=== PATIENT | female | born 1945 | race Caucasian/White ===

== ENCOUNTER 2018-11-17 14:53 | Observation (INO) ==
[2018-11-17] MEDS ORDERED: Naloxone 0.4 MG/ML INJ IVP PRN (15:35)
[2018-11-17] MEDS ORDERED: Ondansetron 4 MG/2 ML VIAL IVP PRN (15:35)
[2018-11-17] MEDS: Ipratropium/Albuterol Neb 3 ML IH SCH ×3 (15:53→23:33)
--- NOTE | 2018-11-17 15:56 | Internal Med History&Physical ---
Date of Encounter: 11/17/18 Time of Encounter: 15:30 Internal Medicine - H&P: HPI Chief complaint: SOB, sent from pulm clinic Admitted From: Direct Admit Plans for Post Hospital Care: Home History of present illness: Ms. Bhargav Machuca is a 73 year old female with history of COPD with multiple episodes of exacerbations over the last year, HTN, DM, is admitted directly from pulmonary clinic due to persistent COPD exacerbation. Patient states that she was admitted twice over the last 6 month, last one about 4 months ago at a hospital in [facility]. She has been on various doses of steroids and antibiotics during that period and was seen in pulmonary clinic today when she is found to have diffuse wheezing on exam. Associated with mild cough and sputum production. Denies fever/chills, nausea/vomiting, diaphoresis, chest pain, orthopnea, PND, or leg swelling. No recent immobilization or surgery. Denies any GI/ symptoms. I spoke to the leather goods ii assembler over the phone and determined that she will need bronchoscopy tentatively on Wednesday. Past Med Surg Social Fam HX - Past Medical History Medical history: cancer, COPD, diabetes, hypertension Psychiatric history: no psych history - Past Surgical History Additional surgical history: B/L mastectomy - Social History Smoking Status: Unknown if ever smoked Alcohol use: none Drug use: none - Additional Family History Additional family history: Reviewed and noncontributory Internal Medicine - H&P: Meds Allergy/AdvReac Type Severity Reaction Status Date / Time Cephalosporins AdvReac Hives Verified 11/17/18 15:43 Nitrofuran Analogues AdvReac Hives Verified 11/17/18 15:43 NSAIDS (Non-Steroidal AdvReac Hives Verified 11/17/18 15:43 Anti-Inflamma Penicillins AdvReac Hives Verified 11/17/18 15:40 Tetracyclines AdvReac Hives Verified 11/17/18 15:43 Tricyclic Compounds AdvReac Hives Verified 11/17/18 15:43 All Systems PM: A 10-system review of systems was performed and is negative for pertinent findings except as documented above in the HPI. - Constitutional Vitals: Temp Pulse Resp BP Pulse Ox 98.1 F 80 20 111/61 95 11/17/18 15:07 11/17/18 15:07 11/17/18 15:07 11/17/18 15:07 11/17/18 15:07 Exam: General: Alert and oriented, not in acute distress. HEENT:EOMI, pupils equal, round and reactive. Cardiovascular:Normal S1 & S2, No JVD. Pulse regular. Lungs: Diffuse bilateral wheezes Abdomen:Soft, non-tender, no rigidity. Extremities:No deformity or swelling Neurological:Normal cognition and motor skills. Non-focal Skin:Normal color, no rash, no lesions. Pulses:Carotid and radial pulses normal +2. Rest of the physical exam is non contributory - Assessment and Plan (1) COPD exacerbation Current Visit: Yes Status: Acute Assessment and plan: recurrent COPD exacerbation requiring multiple hospitalizations, last one ~ 4 months ago at the hospital in [facility] Was seen by leather goods ii assembler in the clinic today and was advised for the admission. Discussed in person with Dr. Henderson, was given IV solumedrol 125mg in the clinic continue solumedrol 40mg BID, scheduled bronchodilators CT chest Respiratory viral panel, sputum culture if able to expectorate start levaquin after bld cultures are drawn tentative plan for bronchoscopy on Wednesday pulmonary consult (2) Diabetes Current Visit: Yes Status: Chronic Assessment and plan: moderate dose sliding scale ADA diet Qualifiers: Diabetes mellitus type: type 2 Diabetes mellitus it analyst insulin use: with skilled nursing use Diabetes mellitus complication status: with unspecified complications Qualified Code(s): E11.8 - Type 2 diabetes mellitus with unspecified complications; Z79.4 - longterm (current) use of insulin (3) HTN (hypertension) Current Visit: No Status: Chronic Assessment and plan: Resume home meds once reconciled Qualifiers: Hypertension type: essential hypertension Qualified Code(s): I10 - Essential (primary) hypertension (4) Obesity (BMI 30-39.9) Current Visit: Yes Status: Chronic Assessment and plan: Importance of weight loss emphasized (5) DVT prophylaxis Current Visit: Yes Status: Acute Assessment and plan: SQ heparin - Time Spent With Patient Total time spent is greater than 50% in coordination of care (as documented) at patient's floor/unit and/or counseling patient: 25 - 35 minutes
[2018-11-17] MEDS ORDERED: Dextrose 4 GM Chewable Tablets PO PRN ×2 (16:02)
[2018-11-17] MEDS ORDERED: D5% in Water 1,000 ML IVC PRN (16:02)
[2018-11-17] MEDS ORDERED: Dextrose Gel 15 GM/37.5 ML TUBE PO PRN ×2 (16:02)
[2018-11-17] MEDS ORDERED: *HR* Dextrose 50 % in Water (Syg) 50 ML SYRINGE IVP PRN (16:02)
[2018-11-17 16:19] LABS: Basophils % 0.6 %; Eosinophils # 0.4 K/mcL (0.0-0.6); Eosinophils % 5.3 %; Hematocrit 34.4 % (35.3-44.9); Hemoglobin 10.5 g/dL (11.5-15.4); Immature Granulocytes % 0.1 % (0-4); Lymphocytes # 2.2 K/mcL (0.6-4.6); Lymphocytes % 30.3 %; Mean Corpuscular HGB Conc 30.5 g/dL (31.6-35.5); Mean Corpuscular Volume 88.4 fL (83.0-100.0); Mean Platelet Volume 10.7 fL (9.4-12.4); Monocytes # 0.4 K/mcL (0.0-1.3); Neutrophils # 4.2 K/mcL (1.6-8.9); Platelet Count 200 K/mcL (140-400); Red Blood Count 3.89 M/mcL (3.82-4.97); Red Cell Distribution Width 15.2 % (11.5-14.5); Segmented Neutrophils % 58.7 %
[2018-11-17 16:35] LABS: Calcium 8.8 mg/dL (8.6-10.3); Potassium 4.1 mEq/L (3.5-5.1)
[2018-11-17] MEDS: Insulin LISPRO 300 UNITS/3 ML VIAL SQ SCH ×2 (16:37→21:11)
--- NOTE | 2018-11-17 17:04 | Pulmonology Consult Note ---
<Jolene Abrams - Last Filed: 11/17/18 16:59> Date of Encounter: 11/17/18 Time of Encounter: 16:00 Assessment and Plan (1) COPD exacerbation Current Visit: Yes Status: Acute History of COPD currently in COPD exacerbation having worsening cough as well as shortness of breath. Has frequent COPD exacerbations and is compliant with her Symbicort and albuterol. As long history of occupational chemical exposure as well as a pet bird. There is no echo on file and may benefit from further cardiac workup Continue DuoNeb Continue Symbicort 40 mg of IV Solu-Medrol Q8HR Recommend bronchoscopy over the weekend due to her acute COPD exacerbation. (2) Diabetes Current Visit: Yes Status: Chronic History of type 2 diabetes. May need to have her sliding-scale adjusted due to Solu-Medrol. Further recommendations by primary team. 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 Does have history of diabetes recommend diabetic diet. History of Present Illness Consult date: 11/17/18 Requesting physician: Min Grover Reason for consult: dyspnea, cough Chief complaint: cough History of present illness: Ms. Durant is a 73-year-old female with past medical history of COPD, hyperte nsion, type 2 diabetes who presented to her pulmonary clinic complaining of cough and shortness of breath. He was directly admitted from the pulmonary clinic due to persistent COPD exacerbation. She has had frequent hospital admissions in the past 6 months due to her COPD exacerbation. He noted that often after completing her steroid taper her symptoms worsen. She is not a current smoker and quit smoking 16 years ago has 80-guhi-naem smoking history. She does have a pet bird and has had this port for the past 18 years. She does report that the bird is not in the same room as her but does have exposure to it. 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 She denies history of sleep apnea and noted that she has been tested for a sleep study in the past. Currently she is complaining of cough that is nonproductive and just. She denies fever, chills, chest pain or abdominal pain. Past Med Surg Social Fam HX - Past Medical History Medical history: cancer, COPD, diabetes, hypertension Psychiatric history: no psych history - Past Surgical History Additional surgical history: B/L mastectomy - Social History Smoking Status: Unknown if ever smoked Alcohol use: none Drug use: none Medications and Allergies Allergy/AdvReac Type Severity Reaction Status Date / Time Cephalosporins AdvReac Hives Verified 11/17/18 15:43 Nitrofuran Analogues AdvReac Hives Verified 11/17/18 15:43 NSAIDS (Non-Steroidal AdvReac Hives Verified 11/17/18 15:43 Anti-Inflamma Penicillins AdvReac Hives Verified 11/17/18 15:40 Tetracyclines AdvReac Hives Verified 11/17/18 15:43 Tricyclic Compounds AdvReac Hives Verified 11/17/18 15:43 All Systems: The remainder of the systems were reviewed and are negative - Constitutional Constitutional: no chills, no fever(s), no weakness - EENT Nose, mouth and throat: no nasal congestion, no sinus pain, no sore throat - Cardiovascular Cardiovascular: dyspnea, dyspnea on exertion, no chest pain, no chest pain at rest, no chest pain with activity, no edema, no orthopnea, no palpitations, no paroxysmal nocturnal dyspnea - Respiratory Respiratory: cough, dyspnea, dyspnea on exertion, chest congestion - Gastrointestinal Gastrointestinal: no abdominal pain, no hematemesis, no hematochezia - Musculoskeletal Musculoskeletal: no weakness, no numbness - Integumentary Integumentary: no erythema, no rash - Psychiatric Psychiatric: no anxiety, no depression Physical Examination Vital Signs: Vital Signs, Last 4 Hours Temp Pulse Resp BP Pulse Ox 11/17/18 15:53 20 95 11/17/18 15:07 98.1 F 80 20 111/61 95 11/17/18 14:45 98 F 83 16 126/81 95 General appearance: no acute distress, alert Eyes: nonicteric ENT: oropharynx moist Neck: supple Auscultation: bilateral: wheezes (Wheezing in all lung lobes) Gastrointestinal: normoactive bowel sounds, soft, non-tender, non-distended Integumentary: normal Extremities: no cyanosis, no edema Musculoskeletal: no deformities normal mental status, pupils equal and round mood appropriate, affect normal Results - Laboratory Findings CBC and BMP: 11/17/18 16:04 11/17/18 16:04 Abnormal lab findings: Abnormal lab results Hgb 10.5 g/dL (11.5-15.4) L 11/17/18 16:04 Hct 34.4 % (35.3-44.9) L 11/17/18 16:04 MCH 27.0 pg (28.0-33.3) L 11/17/18 16:04 MCHC 30.5 g/dL (31.6-35.5) L 11/17/18 16:04 RDW 15.2 % (11.5-14.5) H 11/17/18 16:04 BUN 42 mg/dL (8-23) H 11/17/18 16:04 Creatinine 1.78 mg/dL (0.60-1.20) H 11/17/18 16:04 Est GFR ( Amer) 34 (> 60) L 11/17/18 16:04 Est GFR (Non-Af Amer) 28 (> 60) L 11/17/18 16:04 Glucose 112 mg/dL (70-105) H 11/17/18 16:04 - Clinical Findings Intake & Output: Intake & Output 11/17/18 11/17/18 11/17/18 07:59 15:59 23:59 Weight 94.529 kg Consult Discharge Plan - Plan Referrals: NONE,PCP [Primary Care Provider] - <Miguel Kahn - Last Filed: 11/17/18 17:19> Date of Encounter: 11/17/18 All Systems: The remainder of the systems were reviewed and are negative Physical Examination Vital Signs: Vital Signs, Last 4 Hours Temp Pulse Resp BP Pulse Ox 11/17/18 15:53 20 95 11/17/18 15:07 98.1 F 80 20 111/61 95 11/17/18 14:45 98 F 83 16 126/81 95 Results - Laboratory Findings CBC and BMP: 11/17/18 16:04 11/17/18 16:04 Abnormal lab findings: Abnormal lab results Hgb 10.5 g/dL (11.5-15.4) L 11/17/18 16:04 Hct 34.4 % (35.3-44.9) L 11/17/18 16:04 MCH 27.0 pg (28.0-33.3) L 11/17/18 16:04 MCHC 30.5 g/dL (31.6-35.5) L 11/17/18 16:04 RDW 15.2 % (11.5-14.5) H 11/17/18 16:04 BUN 42 mg/dL (8-23) H 11/17/18 16:04 Creatinine 1.78 mg/dL (0.60-1.20) H 11/17/18 16:04 Est GFR ( Amer) 34 (> 60) L 11/17/18 16:04 Est GFR (Non-Af Amer) 28 (> 60) L 11/17/18 16:04 Glucose 112 mg/dL (70-105) H 11/17/18 16:04 POC Glucose 126 mg/dL (70-99) H 11/17/18 15:17 - Clinical Findings Intake & Output: Intake & Output 11/17/18 11/17/18 11/17/18 07:59 15:59 23:59 Weight 94.529 kg - Attending Attestation I examined this patient and my medical decision-making was reviewed with the Resident Physician. I agree with the documented findings, disposition and treatment plan as described except to the extent set forth below. Patient seen and examined. Labs, radiology, chart personally reviewed. Agree with resident's history and physical, assessment, plan with following comments: HIGH SCHOOL ASSISTANT PRINCIPAL: Patient follows commands, Pulmonary: Acceptable oxygenation and ventilation Patient was referred from the outpatient clinic because of her multiple exacerbations and she will need a bronchoscopy, however cause of her exacerbation at this time will need to treat her with systemic steroid and bronchodilators and monitor her blood glucose because of the history of diabetes and cover her with empiric antibiotics as well. Patient most likely will have bronchoscopy this coming weekend if her condition does not change. Airway ins pection and checking for any atypical infections and would be reasonable. Thank you very much for consultation and please call for any questions.
[2018-11-17] MEDS: *HR* Heparin 5,000 UNIT/ML VIAL SQ SCH (18:30)
[2018-11-17] MEDS: MethylPREDNISolone 40 MG/ML VIAL IVP SCH (18:31)
[2018-11-17 18:39] LABS: Adenovirus Not Detected (Not Detect); Bordetella Pertussis Not Detected (Not Detect); Chlamydophila pneumoniae Not Detected (Not Detect); Coronavirus 229E Not Detected (Not Detect); Coronavirus HKU1 Not Detected (Not Detect); Coronavirus NL63 Not Detected (Not Detect); Coronavirus OC43 Not Detected (Not Detect); Human Metapneumovirus Not Detected (Not Detect); Human Rhinovirus/Enterovirus Not Detected (Not Detect); Influenza A Subtype 2009 H1 Not Detected (Not Detect); Influenza A Untypeable Not Detected (Not Detect); Influenza B Not Detected (Not Detect); Mycoplasma pneumoniae Not Detected (Not Detect); Parainfluenza Virus 1 Not Detected (Not Detect); Parainfluenza Virus 2 Not Detected (Not Detect); Parainfluenza Virus 3 Not Detected (Not Detect); Parainfluenza Virus 4 Not Detected (Not Detect); Respiratory Syncytial Virus Not Detected (Not Detect)
[2018-11-17] MEDS: Budesonide/Formoterol 160/4.5 1 PUFF INH IH SCH (20:03)
[2018-11-17] MEDS: traMADol 50 MG TABLET PO PRN (23:07)
[2018-11-17] MEDS: Levofloxacin 750 MG/150 ML 750 MG/150 ML BAG IVPB SCH (23:07)
[2018-11-18] MEDS: MethylPREDNISolone 40 MG/ML VIAL IVP SCH ×4 (00:36→23:19)
[2018-11-18] MEDS: Ipratropium/Albuterol Neb 3 ML IH SCH ×6 (03:47→23:27)
[2018-11-18] MEDS: *HR* Heparin 5,000 UNIT/ML VIAL SQ SCH ×2 (05:32→16:43)
[2018-11-18] MEDS ORDERED: MethylPREDNISolone 40 MG/ML VIAL IVP SCH (06:00)
[2018-11-18] MEDS: Budesonide/Formoterol 160/4.5 1 PUFF INH IH SCH ×3 (07:23→19:42)
[2018-11-18] MEDS: Insulin LISPRO 300 UNITS/3 ML VIAL SQ SCH ×4 (08:09→20:53)
--- NOTE | 2018-11-18 11:04 | Pulmonology Progress Note ---
Date of Encounter: 11/18/18 Time of Encounter: 11:04 Assessment and Plan (1) COPD exacerbation Current Visit: Yes Status: Acute Patient with recurrent COPD exacerbations despite aggressive medical therapy in the outpatient setting. Plan to proceed with bronchoscopy once bronchospasm has alleviated upon today's examination she is still to bronchospastic to consider that today and I suspect we will be unable to do it tomorrow either I will assess her first thing in the morning to this and in the interim I recommend increasing her IV Solu-Medrol to 60 mg 3 times a day. Otherwise continue current therapies including bronchodilators and antibiotics. Her CT scan is without acute or chronic process A bronchoscopy is recommended. The procedure , risks, benefits, complications, and expected outcomes have been reviewed. Benefits of diagnosis, as well as risks to include bleeding, infection, pneumothorax which may require surgical intervention, and in a small population. The patient is aware that sometimes test is nondiagnostic. Discussed with patient and agrees to proceed. Subjective Principal diagnosis: COPD Exacerbation Interval history: Zarina finn feels about the same still very bronchospastic and wheezing the nebulized breathing treatments has worsened her Parkinson's Objective PUL Vital signs: Last Vital Signs Temp 98.1 F 11/18/18 07:35 Pulse 88 11/18/18 07:35 Resp 20 11/18/18 07:35 BP 133/70 11/18/18 07:35 Pulse Ox 96 11/18/18 07:35 General appearance: no acute distress Eyes: nonicteric Effort: mildly labored Auscultation: bilateral: wheezes, rhonchi Cardiovascular: regular rate and rhythm Gastrointestinal: normoactive bowel sounds, soft, non-tender Integumentary: normal Extremities: no cyanosis, no edema, no clubbing normal mental status, other (Resting tremor noted) mood appropriate Results - Laboratory Findings CBC and BMP: 11/17/18 16:04 11/17/18 16:04 Abnormal lab findings: Abnormal lab results Hgb 10.5 g/dL (11.5-15.4) L 11/17/18 16:04 Hct 34.4 % (35.3-44.9) L 11/17/18 16:04 MCH 27.0 pg (28.0-33.3) L 11/17/18 16:04 MCHC 30.5 g/dL (31.6-35.5) L 11/17/18 16:04 RDW 15.2 % (11.5-14.5) H 11/17/18 16:04 BUN 42 mg/dL (8-23) H 11/17/18 16:04 Creatinine 1.78 mg/dL (0.60-1.20) H 11/17/18 16:04 Est GFR ( Amer) 34 (> 60) L 11/17/18 16:04 Est GFR (Non-Af Amer) 28 (> 60) L 11/17/18 16:04 Glucose 112 mg/dL (70-105) H 11/17/18 16:04 POC Glucose 255 mg/dL (70-99) H 11/18/18 07:31 - Microbiology Findings Microbiology Findings: Microbiology, Last 48 Hours 11/17/18 16:04 Blood Culture - Preliminary Peripheral Venipuncture Culture is incubating and being continuously monitored for growth. Final report to follow. 11/17/18 16:04 Blood Culture - Preliminary Peripheral Venipuncture Culture is incubating and being continuously monitored for growth. Final report to follow. - Diagnostic Findings CT scan - chest: report reviewed, image reviewed - Clinical Findings Intake & Output: Intake & Output 11/17/18 11/18/18 11/18/18 23:59 07:59 15:59 Intake Total 150 / 150 120 / 120 Balance 150 / 150 120 / 120 Weight 95 kg Consult Discharge Plan - Plan Referrals: NONE,PCP [Primary Care Provider] -
[2018-11-18] MEDS: Gabapentin 300 MG CAPSULE PO SCH ×2 (16:44→20:53)
--- NOTE | 2018-11-18 17:42 | Internal Med Progress Note ---
Hospitalist Progress Note - Encounter Date of Encounter: 11/18/18 Time of Encounter: 17:40 - Subjective Interval History: Patient seen and examined at bedside currently experiencing some tremors and requesting her Parkinson's medications. We did discuss bronchoscopy scheduled for the a.m. advised patient she will be nothing by mouth after midnight patient verbalized understanding. - Exam Vitals: Temp Pulse Resp BP Pulse Ox 99.3 F 96 21 120/69 98 11/18/18 15:12 11/18/18 15:12 11/18/18 15:35 11/18/18 15:12 11/18/18 15:35 Exam: General: Alert and oriented, not in acute distress. HEENT:EOMI, pupils equal, round and reactive. Cardiovascular:Normal S1 & S2, No JVD. Pulse regular. Lungs: Diffuse bilateral wheezes Abdomen:Soft, non-tender, no rigidity. Extremities:No deformity or swelling Neurological:Normal cognition and motor skills. Non-focal Skin:Normal color, no rash, no lesions. Pulses:Carotid and radial pulses normal +2. Rest of the physical exam is non contributory - Assessment and Plan (1) COPD exacerbation Current Visit: Yes Status: Acute Assessment and Plan: recurrent COPD exacerbation requiring multiple hospitalizations, last one ~ 4 months ago at the hospital in [facility] Was seen by incident response engineer in the clinic today and was advised for the admission. Discussed in person with Dr. Henderson, was given IV solumedrol 125mg in the clinic continue solumedrol 40mg BID, scheduled bronchodilators CT chest Respiratory viral panel, sputum culture if able to expectorate start levaquin after bld cultures are drawn tentative plan for bronchoscopy on Wednesday pulmonary consult (2) Diabetes Current Visit: Yes Status: Chronic Assessment and Plan: moderate dose sliding scale- ADA diet (3) HTN (hypertension) Current Visit: No Status: Deleted Assessment and Plan: Weight controlled continue with home medications (4) Obesity (BMI 30-39.9) Current Visit: Yes Status: Chronic Assessment and Plan: Importance of weight loss emphasized (5) DVT prophylaxis Current Visit: Yes Status: Acute Assessment and Plan: SQ heparin - Time Spent with Patient Total time spent is greater than 50% in coordination of care (as documented) at patient's floor/unit and/or counseling patient: Internal Medicine: Result - Labs CBC & Chem 7: 11/17/18 16:04 11/17/18 16:04 Consult Discharge Plan - Plan Referrals: NONE,PCP [Primary Care Provider] - (2) Diabetes Qualifiers: Diabetes mellitus type: type 2 Diabetes mellitus half-way insulin use: with 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
[2018-11-18] MEDS: traMADol 50 MG TABLET PO PRN (23:18)
[2018-11-19] MEDS: Ipratropium/Albuterol Neb 3 ML IH SCH ×5 (03:36→20:02)
[2018-11-19 04:25] LABS: Hematocrit 30.7 % (35.3-44.9); Hemoglobin 9.3 g/dL (11.5-15.4); Immature Granulocytes % 0.3 % (0-4); Lymphocytes # 0.5 K/mcL (0.6-4.6); Lymphocytes % 7.4 %; Mean Corpuscular HGB Conc 30.3 g/dL (31.6-35.5); Mean Corpuscular Hemoglobin 26.6 pg (28.0-33.3); Mean Corpuscular Volume 87.7 fL (83.0-100.0); Mean Platelet Volume 10.9 fL (9.4-12.4); Monocytes # 0.2 K/mcL (0.0-1.3); Monocytes % 2.8 %; Neutrophils # 5.8 K/mcL (1.6-8.9); Platelet Count 172 K/mcL (140-400); Red Cell Distribution Width 15.5 % (11.5-14.5); Segmented Neutrophils % 89.5 %
[2018-11-19 04:40] LABS: Potassium 4.7 mEq/L (3.5-5.1)
[2018-11-19] MEDS: *HR* Heparin 5,000 UNIT/ML VIAL SQ SCH ×2 (05:30→16:17)
[2018-11-19] MEDS: Budesonide/Formoterol 160/4.5 1 PUFF INH IH SCH ×4 (07:18→20:01)
[2018-11-19] MEDS: MethylPREDNISolone 40 MG/ML VIAL IVP SCH (08:27)
[2018-11-19] MEDS: Insulin LISPRO 300 UNITS/3 ML VIAL SQ SCH ×4 (08:27→20:51)
[2018-11-19] MEDS: Gabapentin 300 MG CAPSULE PO SCH ×3 (08:27→20:56)
[2018-11-19] MEDS: amLODIPine 5 MG TABLET PO SCH (08:27)
--- NOTE | 2018-11-19 08:34 | Pulmonology Progress Note ---
Date of Encounter: 11/19/18 Time of Encounter: 08:34 Assessment and Plan (1) COPD exacerbation Current Visit: Yes Status: Acute Patient with recurrent COPD exacerbations despite aggressive medical therapy in the outpatient setting. Continue current therapies plan for bronchoscopy tomorrow to rule out any atypical infectious process or drug-resistant infections. Keep nothing by mouth at midnight A bronchoscopy is recommended. The procedure , risks, benefits, complications, and expected outcomes have been reviewed. Benefits of diagnosis, as well as risks to include bleeding, infection, pneumothorax which may require surgical intervention, and in a small population. The patient is aware that sometimes test is nondiagnostic. Discussed with patient and agrees to proceed. Subjective Principal diagnosis: COPD Exacerbation Interval history: Zarina that he has made some progress in the last 24 hours she is much less bronchospastic says her breathing is somewhat improved. Objective PUL Vital signs: Last Vital Signs Temp 98.0 F 11/19/18 08:03 Pulse 94 11/19/18 08:03 Resp 16 11/19/18 08:03 BP 137/59 11/19/18 08:03 Pulse Ox 100 11/19/18 08:03 General appearance: no acute distress Eyes: nonicteric Auscultation: bilateral: diminished breath sounds, wheezes (Faint expiratory wheezes in all lung kowalski), rales (Scattered rhonchi in lung bases) Cardiovascular: regular rate and rhythm Gastrointestinal: normoactive bowel sounds Integumentary: normal Extremities: no cyanosis, pink and warm Musculoskeletal: no deformities normal mental status, non-focal exam Results - Laboratory Findings CBC and BMP: 11/19/18 03:59 11/19/18 03:59 Abnormal lab findings: Abnormal lab results RBC 3.50 M/mcL (3.82-4.97) L 11/19/18 03:59 Hgb 9.3 g/dL (11.5-15.4) L 11/19/18 03:59 Hct 30.7 % (35.3-44.9) L 11/19/18 03:59 MCH 26.6 pg (28.0-33.3) L 11/19/18 03:59 MCHC 30.3 g/dL (31.6-35.5) L 11/19/18 03:59 RDW 15.5 % (11.5-14.5) H 11/19/18 03:59 Lymphocytes # 0.5 K/mcL (0.6-4.6) L 11/19/18 03:59 BUN 64 mg/dL (8-23) H 11/19/18 03:59 Creatinine 2.23 mg/dL (0.60-1.20) H 11/19/18 03:59 Est GFR ( Amer) 26 (> 60) L 11/19/18 03:59 Est GFR (Non-Af Amer) 22 (> 60) L 11/19/18 03:59 BUN/Creatinine Ratio 29 (6-26) H 11/19/18 03:59 Glucose 300 mg/dL (70-105) H 11/19/18 03:59 POC Glucose 225 mg/dL (70-99) H 11/18/18 20:24 Calculated Osmolality 314 (280-300) H 11/19/18 03:59 - Microbiology Findings Microbiology Findings: Microbiology, Last 48 Hours 11/17/18 16:04 Blood Culture - Preliminary Peripheral Venipuncture Culture is incubating and being continuously monitored for growth. Final report to follow. 11/17/18 16:04 Blood Culture - Preliminary Peripheral Venipuncture Culture is incubating and being continuously monitored for growth. Final report to follow. - Clinical Findings Intake & Output: Intake & Output 11/18/18 11/19/18 11/19/18 23:59 07:59 15:59 Output Total 300 / 300 350 / 350 350 / 350 Balance -300 / -300 -350 / -350 -350 / -350 Weight 96.1 kg Consult Discharge Plan - Plan Referrals: NONE,PCP [Primary Care Provider] -
--- NOTE | 2018-11-19 09:30 | Internal Med Progress Note ---
Hospitalist Progress Note - Encounter Date of Encounter: 11/19/18 Time of Encounter: 09:25 - Subjective Interval History: Patient seen and examined at bedside currently does not appear to be in any respiratory distress. Currently on 2 L nasal cannula patient states she does not use oxygen at home however she becomes very short of breath particularly whe n she is going up and down stairs. She was scheduled for bronchoscopy this a.m. however this was canceled due to patient continues to experience bronchospasms. Discussed treatment plan with the patient she will be nothing by mouth after midnight for possible bronchoscopy in the a.m. and her steroids will be increased patient verbalized understanding. - Exam Vitals: Temp Pulse Resp BP Pulse Ox 98.0 F 94 16 137/59 100 11/19/18 08:03 11/19/18 08:03 11/19/18 08:03 11/19/18 08:03 11/19/18 08:03 Exam: General: Alert and oriented, not in acute distress. HEENT:EOMI, pupils equal, round and reactive. Cardiovascular:Normal S1 & S2, No JVD. Pulse regular. Lungs: Diffuse bilateral wheezes Abdomen:Soft, non-tender, no rigidity. Extremities:No deformity or swelling Neurological:Normal cognition and motor skills. Non-focal Skin:Normal color, no rash, no lesions. Pulses:Carotid and radial pulses normal +2. Rest of the physical exam is non contributory - Assessment and Plan (1) COPD exacerbation Current Visit: Yes Status: Acute Assessment and Plan: recurrent COPD exacerbation requiring multiple hospitalizations, last one ~ 4 months ago at the hospital in [facility] Was seen by filling station equipment mechanic in the clinic today and was advised for the admission. Discussed in person with Dr. Henderson, was given IV solumedrol 125mg in the clinic continue, scheduled bronchodilators CT chest Respiratory viral panel-is negative , sputum culture if able to expectorate Continue Levaquin bronchoscopy on Wednesday- this was canceled due to continued [id number] will be increased to 60 mg twice a day per pulmonary's recommendations-she will nothing by mouth after midnight for possible bronchoscopy in the morning -bronchospasms have resolved pulmonary consult-appreciate recommendations Patient currently requiring 2 L nasal cannula patient states that she normally does not wear oxygen at home however she does become short of breath during exertion. We will perform 6 minute walk prior to discharge to see if patient qualifies for home oxygen (2) Diabetes Current Visit: Yes Status: Chronic Assessment and Plan: moderate dose sliding scale- ADA diet (3) HTN (hypertension) Current Visit: No Status: Deleted Assessment and Plan: Weight controlled continue with home medications (4) Obesity (BMI 30-39.9) Current Visit: Yes Status: Chronic Assessment and Plan: Importance of weight loss emphasized (5) DVT prophylaxis Current Visit: Yes Status: Acute Assessment and Plan: SQ heparin - Time Spent with Patient Total time spent is greater than 50% in coordination of care (as documented) at patient's floor/unit and/or counseling patient: Internal Medicine: Result - Labs CBC & Chem 7: 11/19/18 03:59 11/19/18 03:59 Labs: Short CBC 11/19/18 Range/Units 03:59 WBC 6.5 (4.3-11.1) K/mcL Hgb 9.3 L (11.5-15.4) g/dL Hct 30.7 L (35.3-44.9) % Plt Count 172 (140-400) K/mcL Neutrophils # 5.8 (1.6-8.9) K/mcL BMP 11/19/18 03:59 Sodium 137 Potassium 4.7 Chloride 104 Carbon Dioxide 24 BUN 64 H Creatinine 2.23 H Glucose 300 H Calcium 9.0 Consult Discharge Plan - Plan Referrals: NONE,PCP [Primary Care Provider] - (2) Diabetes Qualifiers: Diabetes mellitus type: type 2 Diabetes mellitus shelter insulin use: with shelter use Diabetes mellitus complication status: with unspecified complications Qualified Code(s): E11.8 - Type 2 diabetes mellitus with unspecified complications; Z79.4 - terminal carman (current) use of insulin (3) HTN (hypertension) Qualifiers: Hypertension type: essential hypertension Qualified Code(s): I10 - Essential (primary) hypertension
[2018-11-19] MEDS: traMADol 50 MG TABLET PO PRN ×2 (11:42→23:48)
[2018-11-19] MEDS: methylPREDNISolone 125 MG/2 ML VIAL IVP SCH ×2 (16:17→23:48)
[2018-11-19] MEDS: Levofloxacin 750 MG/150 ML 750 MG/150 ML BAG IVPB SCH (20:57)
[2018-11-20] MEDS: Ipratropium/Albuterol Neb 3 ML IH SCH ×5 (00:31→15:35)
[2018-11-20 04:30] LABS: Hematocrit 29.8 % (35.3-44.9); Hemoglobin 9.3 g/dL (11.5-15.4); Immature Granulocytes % 0.5 % (0-4); Lymphocytes # 0.3 K/mcL (0.6-4.6); Lymphocytes % 5.6 %; Mean Corpuscular HGB Conc 31.2 g/dL (31.6-35.5); Mean Corpuscular Volume 86.4 fL (83.0-100.0); Mean Platelet Volume 10.7 fL (9.4-12.4); Monocytes # 0.2 K/mcL (0.0-1.3); Neutrophils # 5.4 K/mcL (1.6-8.9); Platelet Count 156 K/mcL (140-400); Red Blood Count 3.45 M/mcL (3.82-4.97); Red Cell Distribution Width 15.3 % (11.5-14.5); Segmented Neutrophils % 90.9 %
[2018-11-20] MEDS: *HR* Heparin 5,000 UNIT/ML VIAL SQ SCH (04:42)
[2018-11-20 04:46] LABS: Calcium 9.1 mg/dL (8.6-10.3); Potassium 4.4 mEq/L (3.5-5.1)
[2018-11-20] MEDS ORDERED: Lidocaine Viscous Oral Soln 15 ML SOLUTION ONE (07:03)
[2018-11-20] MEDS: Insulin LISPRO 300 UNITS/3 ML VIAL SQ SCH ×2 (07:33→12:28)
[2018-11-20] MEDS: Budesonide/Formoterol 160/4.5 1 PUFF INH IH SCH ×3 (07:36→11:20)
[2018-11-20] MEDS ORDERED: Propofol 500 MG/50 ML INFUS..BTL ONE (07:52)
[2018-11-20] MEDS ORDERED: *HR* Rocuronium Bromide 50 MG/5 ML VIAL ONE (07:53)
[2018-11-20] MEDS ORDERED: Dexamethasone 4 MG/ML VIAL ONE (07:53)
[2018-11-20] MEDS ORDERED: Lidocaine -MPF 2% 2 ML VIAL ONE (07:53)
[2018-11-20] MEDS ORDERED: *HR* Succinylcholine 200 MG/10 ML VIAL IVP ONE (07:53)
[2018-11-20] MEDS ORDERED: *HR* FentaNYL (PF) 100 MCG/2 ML VIAL ONE (07:53)
[2018-11-20] MEDS ORDERED: Ondansetron 4 MG/2 ML VIAL ONE (07:53)
--- NOTE | 2018-11-20 08:17 | Anesthesia Evaluation PreOp ---
Date of Encounter: 11/20/18 Time of Encounter: 08:00 - Past History Planned Operation: Bronchoscopy Cardiac History: HTN, Hyperlipidemia Pulmonary History: COPD MEDICAL RECORD CODER History: Other (Parkinsons) Other Medical History: Renal (CKD), Other (Obese) Anesthesia History: No Prior Anesthetic Complications : No Alcohol Use: none Drug use: none Medications and Allergies Albuterol Sulfate [Ventolin Hfa] 2 puff IH Q6H PRN 11/17/18 [History] Amantadine HCl [Amantadine] 100 mg PO BID 11/17/18 [History] Amlodipine Besylate 5 mg PO DAILY 11/17/18 [History] Atorvastatin Calcium [Lipitor] 80 mg PO HS 11/17/18 [History] Budesonide/Formoterol 160/4.5 [Symbicort 160/4.5] 2 puff IH BID 11/17/18 [History] Chlorthalidone 25 mg PO DAILY 11/17/18 [History] Gabapentin 600 mg PO TID 11/17/18 [History] Insulin DETEMIR [Levemir Flextouch] 30 unit SQ QAM 11/17/18 [History] Insulin DETEMIR [Levemir Flextouch] 60 - 75 unit SQ HS 11/17/18 [History] Irbesartan [Avapro] 300 mg PO DAILY 11/17/18 [History] Levothyroxine Sodium 100 mcg PO DAILY 11/17/18 [History] Montelukast [Singulair] 10 mg PO HS 11/17/18 [History] Omeprazole [PriLOSEC] 20 mg PO DAILY 11/17/18 [History] Roflumilast [Daliresp] 500 mcg PO DAILY 11/17/18 [History] Sertraline [Zoloft] 150 mg PO DAILY 11/17/18 [History] SitaGLIPtin [Januvia] 100 mg PO HS 11/17/18 [History] Tramadol HCl [Ultram] 50 mg PO BID PRN 11/17/18 [History] hydrOXYzine HCl [Hydroxyzine HCl] 25 mg PO TID PRN 11/17/18 [History] Allergy/AdvReac Type Severity Reaction Status Date / Time amitriptyline AdvReac Hives Verified 11/17/18 21:00 cephalexin [From Keflex] AdvReac Hives Verified 11/17/18 21:00 Cephalosporins AdvReac Hives Verified 11/17/18 15:43 clindamycin [From Cleocin] AdvReac Hives Verified 11/17/18 21:00 doxycycline [From Vibramycin] AdvReac Hives Verified 11/17/18 18:34 guaifenesin AdvReac Hives Verified 11/17/18 21:00 Nitrofuran Analogues AdvReac Hives Verified 11/17/18 15:43 nitrofurantoin AdvReac Hives Verified 11/17/18 21:00 [From Macrodantin] NSAIDS (Non-Steroidal AdvReac Hives Verified 11/17/18 15:43 Anti-Inflamma Penicillins AdvReac Hives Verified 11/17/18 21:00 promethazine [From Phenergan] AdvReac Hives Verified 11/17/18 21:00 Tetracyclines AdvReac Hives Verified 11/17/18 21:00 theophylline AdvReac Hives Verified 11/17/18 21:00 tobramycin AdvReac Hives Verified 11/17/18 21:00 Tricyclic Compounds AdvReac Hives Verified 11/17/18 15:43 - Meds/Allergy Pre-op Review Medications Reviewed: Yes Allergies Reviewed: Yes Beta Blockers on Current Med List: No Anesthesia Results - Labs 11/20/18 04:06 11/20/18 04:06 Laboratory Tests 11/20/18 11/20/18 04:06 04:06 Hgb 9.3 L Hct 29.8 L Plt Count 156 Sodium 137 Potassium 4.4 BUN 67 H Creatinine 1.84 H Anesthesia Exam Vital Signs/O2 Sat/Glucose, Most Current Resp Pulse Ox 11/20/18 04:22 16 99 O2 Sat Weight 96.8 kg O2 Sat by Pulse Oximetry 99 O2 Sat by Pulse Oximetry 97 O2 Sat by Pulse Oximetry 94 O2 Sat by Pulse Oximetry 94 O2 Sat by Pulse Oximetry 94 O2 Sat by Pulse Oximetry 93 O2 Sat by Pulse Oximetry 98 O2 Sat by Pulse Oximetry 95 O2 Sat by Pulse Oximetry 96 O2 Sat by Pulse Oximetry 95 O2 Sat by Pulse Oximetry 100 Vital Signs Temp Pulse Resp BP Pulse Ox 98 F 83 16 126/81 95 11/17/18 14:45 11/17/18 14:45 11/17/18 14:45 11/17/18 14:45 11/17/18 14:45 Height: 5'3 Weight: 213 lbs NPO (# of Hours): MN Pain Scale: 0 - HEENT Pupil (Motor): Pupils equal, EOMI Mallampati: III Teeth: Edentulous Oral Opening: Less than or equal to 3 - MEDICAL RECORD CODER LOC: Oriented MEDICAL RECORD CODER Motor: Normal RUE, Normal LUE, Normal RLE, Normal LLE, Normal Face MEDICAL RECORD CODER Sensory: Normal: RUE, LUE, RLE, LLE, Face - Cardiac Rhythm: Regular Murmur: None JVD: No Carotid Bruit: No - Pulmonary Breath Sounds: bilateral Clear Respiratory Effort: Symmetrical Anesthesia Assess/Plan ASA Score: 3 (COPD HTN CKD Obese) Level of consciousness: Cooperative, Oriented Anesthetic Plan: General Autologous Blood: No Monitoring Plan: Standard Monitors Recovery Plan: PACU (Discussed GA, agrees to proceed)
--- NOTE | 2018-11-20 09:03 | Event Note ---
Date of Encounter: 11/20/18 Time of Encounter: 09:01 Zarina underwent bronchoscopy today notable for chronic bronchitis. BAL was performed. She can be discharged from Pulmonary perspective at Primary Teams discretion. Needs to complete 1 week of ABx and Prolonged prednisone taper starting with 40mg to decrease by 10mg weekly f/u with Pulmonary within 1-2 weeks. Thank you
[2018-11-20] MEDS: traMADol 50 MG TABLET PO PRN (10:20)
[2018-11-20] MEDS: Gabapentin 300 MG CAPSULE PO SCH ×2 (10:20→16:02)
[2018-11-20] MEDS: methylPREDNISolone 125 MG/2 ML VIAL IVP SCH ×2 (10:21→16:03)
[2018-11-20] MEDS: amLODIPine 5 MG TABLET PO SCH (10:21)
--- NOTE | 2018-11-20 11:02 | Discharge Summary ---
- NOTES TO OUTPATIENT PROVIDER Notes to Outpatient Provider: Underwent bronchoscopy with pulmonology-chronic bronchitis BAL was performed will complete one week of antibiotics and a prednisone taper 40 mg to decrease by 10 mg weekly will follow up with pulmonary in 1-2 weeks Orders not resulted at time of discharge: Pending orders 11/17/18 15:37 Culture,Sputum with Gram Stain [RM] Routine 11/17/18 16:04 Culture,Blood [BC] Stat 11/20/18 08:54 AFB Culture, Respiratory [TB] Routine AFB Culture, Respiratory [TB] Routine Culture,Respiratory [RM] Routine Culture,Respiratory [RM] Routine Fungal Culture [MYC] Routine Gram Stain [RM] Routine Legionella Culture [RM] Routine Legionella Culture [RM] Routine Resp.Virus Panel,Body Fl Routine 11/20/18 08:55 Fungal Culture [MYC] Routine Gram Stain [RM] Routine Cytology [PTH] Routine 11/20/18 09:03 Cell Count w Diff, Body Fluid [BF] Routine HSV DNA [MOLMIC] Routine 11/20/18 09:04 Cell Count w Diff, Body Fluid [BF] Routine HSV DNA [MOLMIC] Routine 11/20/18 09:05 Resp.Virus Panel,Body Fl Routine Date of Encounter: 11/20/18 Time of Encounter: 11:00 - Discharge Diagnosis (1) COPD exacerbation Priority: Primary Status: Acute (2) Diabetes Priority: Secondary Status: Chronic Qualifiers: Diabetes mellitus type: type 2 Diabetes mellitus senior care insulin use: with intermediate accountant use Diabetes mellitus complication status: with unspecified complications Qualified Code(s): E11.8 - Type 2 diabetes mellitus with unspecified complications; Z79.4 - half-way (current) use of insulin (4) Obesity (BMI 30-39.9) Priority: Secondary Status: Chronic Hospital course: Ms. Bhargav Machuca is a 73 year old female past medical history of CKD COPD hypertension type 2 diabetes who presented to pulmonary clinic complaining of cough shortness of breath she was directly admitted to [facility] in the pulmonary clinic due to persistent COPD exacerbations and she has had frequent hospitalization in the past 6 months due to her COPD. She will complete her steroid taper and that her symptoms would worsen. She is not a current smoker and she is not on any home oxygen at this time. Patient was seen by pulmonology started on IV steroids and bronchodilators-once airway was stabilized patient did undergo bronchoscopy noted for chronic bronchitis BAL was performed. Pulmonology recommending one week of antibiotics and prolonged prednisone taper starting with 40 mg decrease by 10 mg weekly and follow-up with pulmonary within 1-2 weeks. 6 minute walk was completed prior to discharge and patient did qualify for home oxygen. Currently her vital signs are stable - Time Spent with Patient Total time spent providing and/or coordinating discharge services: - Discharge Medications Prescriptions: New levoFLOXacin [Levaquin] 750 mg PO DAILY #3 tablet predniSONE [PredniSONE] 10 mg PO DAILY #70 tablet Continue Albuterol Sulfate [Ventolin Hfa] 2 puff IH Q6H PRN PRN Reason: Shortness Of Breath Amantadine HCl [Amantadine] 100 mg PO BID Amlodipine Besylate 5 mg PO DAILY Atorvastatin Calcium [Lipitor] 80 mg PO HS Budesonide/Formoterol 160/4.5 [Symbicort 160/4.5] 2 puff IH BID Chlorthalidone 25 mg PO DAILY Gabapentin 600 mg PO TID hydrOXYzine HCl [Hydroxyzine HCl] 25 mg PO TID PRN PRN Reason: ITCHING/ANXIETY Insulin DETEMIR [Levemir Flextouch] 30 unit SQ QAM Irbesartan [Avapro] 300 mg PO DAILY Levothyroxine Sodium 100 mcg PO DAILY Montelukast [Singulair] 10 mg PO HS Omeprazole [PriLOSEC] 20 mg PO DAILY Roflumilast [Daliresp] 500 mcg PO DAILY Sertraline [Zoloft] 150 mg PO DAILY SitaGLIPtin [Januvia] 100 mg PO HS Tramadol HCl [Ultram] 50 mg PO BID PRN PRN Reason: Mild To Moderate Pain No Action Insulin DETEMIR [Levemir Flextouch] 60 - 75 unit SQ HS Home Medications: Albuterol Sulfate [Ventolin Hfa] 2 puff IH Q6H PRN 11/17/18 [History] Amantadine HCl [Amantadine] 100 mg PO BID 11/17/18 [History] Amlodipine Besylate 5 mg PO DAILY 11/17/18 [History] Atorvastatin Calcium [Lipitor] 80 mg PO HS 11/17/18 [History] Budesonide/Formoterol 160/4.5 [Symbicort 160/4.5] 2 puff IH BID 11/17/18 [History] Chlorthalidone 25 mg PO DAILY 11/17/18 [History] Gabapentin 600 mg PO TID 11/17/18 [History] Insulin DETEMIR [Levemir Flextouch] 30 unit SQ QAM 11/17/18 [History] Insulin DETEMIR [Levemir Flextouch] 60 - 75 unit SQ HS 11/17/18 [History] Irbesartan [Avapro] 300 mg PO DAILY 11/17/18 [History] Levothyroxine Sodium 100 mcg PO DAILY 11/17/18 [History] Montelukast [Singulair] 10 mg PO HS 11/17/18 [History] Omeprazole [PriLOSEC] 20 mg PO DAILY 11/17/18 [History] Roflumilast [Daliresp] 500 mcg PO DAILY 11/17/18 [History] Sertraline [Zoloft] 150 mg PO DAILY 11/17/18 [History] SitaGLIPtin [Januvia] 100 mg PO HS 11/17/18 [History] Tramadol HCl [Ultram] 50 mg PO BID PRN 11/17/18 [History] hydrOXYzine HCl [Hydroxyzine HCl] 25 mg PO TID PRN 11/17/18 [History] levoFLOXacin [Levaquin] 750 mg PO DAILY #3 tablet 11/20/18 [Rx] predniSONE [PredniSONE] 10 mg PO DAILY #70 tablet 11/20/18 [Rx] Allergies/Adverse Reactions: Allergy/AdvReac Type Severity Reaction Status Date / Time amitriptyline AdvReac Hives Verified 11/17/18 21:00 cephalexin [From Keflex] AdvReac Hives Verified 11/17/18 21:00 Cephalosporins AdvReac Hives Verified 11/17/18 15:43 clindamycin [From Cleocin] AdvReac Hives Verified 11/17/18 21:00 doxycycline [From Vibramycin] AdvReac Hives Verified 11/17/18 18:34 guaifenesin AdvReac Hives Verified 11/17/18 21:00 Nitrofuran Analogues AdvReac Hives Verified 11/17/18 15:43 nitrofurantoin AdvReac Hives Verified 11/17/18 21:00 [From Macrodantin] NSAIDS (Non-Steroidal AdvReac Hives Verified 11/17/18 15:43 Anti-Inflamma Penicillins AdvReac Hives Verified 11/17/18 21:00 promethazine [From Phenergan] AdvReac Hives Verified 11/17/18 21:00 Tetracyclines AdvReac Hives Verified 11/17/18 21:00 theophylline AdvReac Hives Verified 11/17/18 21:00 tobramycin AdvReac Hives Verified 11/17/18 21:00 Tricyclic Compounds AdvReac Hives Verified 11/17/18 15:43 Date of admission: 11/17/18 15:04 Primary care physician: PCP NONE Consults: 11/17/18 15:39 Consult to Pulmonology [CONS] Routine Consulting Provider: [facility] Reason for Consult: COPD exacerbation, sent by Dr. Henderson Call Completed: Yes 11/17/18 18:46 Consult to Biodiesel Processing Technician [CONS] Routine Reason for SW Consult: financial concerns regarding medications and hospitalization Discharging clinician: Dipti Jimenez Anticipated date of discharge: 11/20/18 - Constitutional Vitals: Temp Pulse Resp BP Pulse Ox 98.3 F 85 16 125/70 93 11/20/18 10:00 11/20/18 10:00 11/20/18 10:00 11/20/18 10:00 11/20/18 10:00 Exam: General: Alert and oriented, not in acute distress. HEENT:EOMI, pupils equal, round and reactive. Cardiovascular:Normal S1 & S2, No JVD. Pulse regular. Lungs: Faint bilateral wheezes Abdomen:Soft, non-tender, no rigidity. Extremities:No deformity or swelling Neurological:Normal cognition and motor skills. Non-focal Skin:Normal color, no rash, no lesions. Pulses:Carotid and radial pulses normal +2. Rest of the physical exam is non contributory - Patient Status Disposition: Home, Self-Care Condition: Good Functional capacity at discharge: independent ambulation Overall status at discharge: patient is back to baseline - Discharge Instructions Follow Up With: NONE,PCP [Primary Care Provider] - - Diet and Activity Activity: wear oxygen at all times Diet: diabetic diet
--- NOTE | 2018-11-20 11:50 | Anesthesia Evaluation Post Op ---
Date of Encounter: 11/20/18 Time of Encounter: 10:00 - Vital Signs Vital Signs: Vital Signs/O2 Sat/Glucose, Most Current Temp Pulse Resp BP Pulse Ox 11/20/18 11:20 16 95 11/20/18 10:00 98.3 F 85 16 125/70 93 11/20/18 09:30 98.7 F 88 16 136/58 94 11/20/18 09:20 98.7 F 88 16 142/67 94 11/20/18 09:10 98.7 F 96 16 142/58 95 11/20/18 09:00 99.5 F 86 16 139/73 100 11/20/18 08:00 94 - Lungs Lungs: Clear Ascult./Percussion - Airway Airway: Non-obstructed - Cardiovascular Regular Rate - Mental Status Mental Status: Alert & Oriented, Answers Appropriately - Pain Pain Scale: 0 - Nausea Vomiting Nausea Vomiting: Not Present - Hydration Hydration: NPO - Discharge PostOp Status: Transfer Patient to floor
[2018-11-20 12:25] VITALS: BP 148/70
[2018-11-20 15:18] LABS: Source of Body Fluid LEFT UPPER LOBE LUNG
[2018-11-20 19:16] LABS: Appearance of Body Fluid Hazy (Clear); Volume of Body Fluid 10 mL
[2018-11-20 19:26] LABS: Appearance of Body Fluid Hazy (Clear); Source of Body Fluid RIGHT MIDDLE LOBE LU; Volume of Body Fluid 15 mL
[2018-11-23 07:15] LABS: HSV Source BAL
[2018-11-23 15:27] LABS: Influenza A PCR Body Fluid NOT DETECTED; Influenza B PCR Body Fluid NOT DETECTED; RVP Body Fluid Source BAL LUL; RVP Body Fluid Source BAL RML
[2018-11-24 15:15] LABS: RSV PCR Body Fluid NOT DETECTED
== END 2018-11-20 16:55 | disposition home or self-care (01) ==
LOC: 3BNU
PROVIDERS: ADMIT Internal Medicine; ATTEND Internal Medicine

== ENCOUNTER 2019-12-01 18:17 | Observation (INO) ==
[2019-12-01] MEDS ORDERED: Ipratropium/Albuterol Neb 3 ML IH ONE (18:58)
[2019-12-01] MEDS ORDERED: methylPREDNISolone 125 MG/2 ML VIAL IVP ONE (18:58)
[2019-12-01 19:42] LABS: Basophils % 0.2 %; Eosinophils # 0.9 K/mcL (0.0-0.6); Eosinophils % 11.2 %; Hematocrit 35.7 % (35.3-44.9); Hemoglobin 11.4 g/dL (11.5-15.4); Immature Granulocytes % 0.4 % (0-4); Lymphocytes # 2.3 K/mcL (0.6-4.6); Lymphocytes % 27.8 %; Mean Corpuscular HGB Conc 31.9 g/dL (31.6-35.5); Mean Platelet Volume 11.1 fL (9.4-12.4); Monocytes # 0.4 K/mcL (0.0-1.3); Monocytes % 4.7 %; Neutrophils # 4.7 K/mcL (1.6-8.9); Platelet Count 156 K/mcL (140-400); Red Blood Count 3.68 M/mcL (3.82-4.97); Red Cell Distribution Width 13.7 % (11.5-14.5); Segmented Neutrophils % 55.7 %; White Blood Count 8.4 K/mcL (4.3-11.1)
[2019-12-01 20:07] LABS: BUN/Creatinine Ratio 16 (6-26); Blood Urea Nitrogen 17 mg/dL (8-23); Calcium 9.1 mg/dL (8.6-10.3); Carbon Dioxide 31 mEq/L (23-29); Chloride 103 mEq/L (98-107); Glucose 208 mg/dL (70-105); Osmolality,Calculated 300 (280-300); Potassium 3.6 mEq/L (3.5-5.1); Sodium 141 mEq/L (136-145); Troponin I < 0.03 ng/mL (< 0.04); eGFR For African Americans > 60 (> 60); eGFR For Non-African Americans 52 (> 60)
[2019-12-01] MEDS ORDERED: levoFLOXacin 750 MG/150 ML 750 MG/150 ML BAG IVPB ONE (20:10)
[2019-12-01] MEDS ORDERED: Naloxone 0.4 MG/ML INJ IVP PRN (21:34)
[2019-12-01] MEDS ORDERED: Ondansetron 4 MG/2 ML VIAL IVP PRN (21:50)
[2019-12-01] MEDS ORDERED: Acetaminophen 325 MG TABLET PO PRN (21:50)
[2019-12-01] MEDS: *HR* Heparin 5,000 UNIT/ML VIAL SQ SCH (23:29)
[2019-12-01] MEDS ORDERED: Insulin DETEMIR 100 UNIT/ML X5UNITS SQ SCH (23:45)
[2019-12-01] MEDS: Budesonide/Formoterol 160/4.5 1 PUFF INH IH SCH (23:58)
[2019-12-02] MEDS: Insulin DETEMIR 100 UNIT/ML X5UNITS SQ SCH ×3 (00:53→19:57)
[2019-12-02] MEDS: Insulin LISPRO 300 UNITS/3 ML VIAL SQ SCH ×3 (00:53→17:25)
[2019-12-02] MEDS: Gabapentin 300 MG CAPSULE PO SCH ×3 (00:54→19:58)
[2019-12-02 02:12] LABS: Basophils % 0.3 %; Eosinophils # 0.1 K/mcL (0.0-0.6); Eosinophils % 0.9 %; Hematocrit 37.9 % (35.3-44.9); Hemoglobin 12.1 g/dL (11.5-15.4); Immature Granulocytes % 0.9 % (0-4); Lymphocytes # 0.7 K/mcL (0.6-4.6); Lymphocytes % 9.8 %; Mean Corpuscular HGB Conc 31.9 g/dL (31.6-35.5); Mean Corpuscular Hemoglobin 30.4 pg (28.0-33.3); Mean Corpuscular Volume 95.2 fL (83.0-100.0); Mean Platelet Volume 11.4 fL (9.4-12.4); Monocytes # 0.1 K/mcL (0.0-1.3); Monocytes % 0.7 %; Neutrophils # 6.1 K/mcL (1.6-8.9); Platelet Count 151 K/mcL (140-400); Red Blood Count 3.98 M/mcL (3.82-4.97); Red Cell Distribution Width 13.7 % (11.5-14.5); Segmented Neutrophils % 87.4 %
[2019-12-02 02:13] LABS: Prothrombin Time 11.9 Seconds (9.4-12.1)
[2019-12-02] MEDS: Ipratropium/Albuterol Neb 3 ML IH PRN ×3 (02:28→23:54)
[2019-12-02 02:32] LABS: Calcium 9.2 mg/dL (8.6-10.3); Magnesium 1.6 mg/dL (1.6-2.6); Potassium 4.2 mEq/L (3.5-5.1)
[2019-12-02] MEDS: *HR* Heparin 5,000 UNIT/ML VIAL SQ SCH ×3 (05:23→19:58)
[2019-12-02] MEDS: methylPREDNISolone 125 MG/2 ML VIAL IVP SCH ×2 (05:23→16:29)
[2019-12-02] MEDS: Budesonide/Formoterol 160/4.5 1 PUFF INH IH SCH ×2 (06:52→20:24)
[2019-12-02] MEDS ORDERED: Gabapentin 300 MG CAPSULE ONE (08:13)
[2019-12-02] MEDS ORDERED: Insulin Human Regular 10 UNIT in 0.9 % Sodium Chloride 10 ML IV ONE (16:00)
[2019-12-02] MEDS ORDERED: Insulin LISPRO 300 UNITS/3 ML VIAL SQ ONE (16:00)
[2019-12-02] MEDS ORDERED: levoFLOXacin 750 MG/150 ML 750 MG/150 ML BAG IVPB SCH (18:00)
[2019-12-02] MEDS ORDERED: methylPREDNISolone 125 MG/2 ML VIAL IVP ONE (21:00)
[2019-12-03] MEDS: *HR* Heparin 5,000 UNIT/ML VIAL SQ SCH ×3 (04:17→21:15)
[2019-12-03 07:17] LABS: Calcium 9.2 mg/dL (8.6-10.3); Magnesium 2.1 mg/dL (1.6-2.6); Potassium 4.4 mEq/L (3.5-5.1)
[2019-12-03 07:26] LABS: Hematocrit 34.1 % (35.3-44.9); Mean Corpuscular HGB Conc 32.3 g/dL (31.6-35.5); Mean Corpuscular Hemoglobin 30.2 pg (28.0-33.3); Mean Corpuscular Volume 93.7 fL (83.0-100.0); Mean Platelet Volume 11.6 fL (9.4-12.4); Platelet Count 171 K/mcL (140-400); Red Blood Count 3.64 M/mcL (3.82-4.97); Red Cell Distribution Width 13.7 % (11.5-14.5)
[2019-12-03] MEDS ORDERED: Dextrose Gel 15 GM/37.5 ML TUBE PO PRN ×2 (07:47)
[2019-12-03] MEDS ORDERED: D5% in Water 1,000 ML IVC PRN (07:47)
[2019-12-03] MEDS ORDERED: *HR* Dextrose 50 % in Water (Syg) 50 ML SYRINGE IVP PRN (07:47)
[2019-12-03] MEDS: Ipratropium/Albuterol Neb 3 ML IH PRN ×2 (07:53→15:17)
[2019-12-03] MEDS: Budesonide/Formoterol 160/4.5 1 PUFF INH IH SCH ×2 (07:53→19:44)
[2019-12-03] MEDS: MethylPREDNISolone 40 MG/ML VIAL IVP SCH ×2 (08:04→21:14)
[2019-12-03] MEDS: Insulin LISPRO 300 UNITS/3 ML VIAL SQ SCH ×6 (08:05→21:14)
[2019-12-03] MEDS: Gabapentin 300 MG CAPSULE PO SCH ×2 (08:05→21:14)
[2019-12-03] MEDS ORDERED: 0.9 % Sodium Chloride 1,000 ML IVC SCH (08:15)
[2019-12-03] MEDS: Insulin DETEMIR 100 UNIT/ML X5UNITS SQ SCH ×2 (08:17→21:14)
[2019-12-03] MEDS ORDERED: Insulin LISPRO 300 UNITS/3 ML VIAL SQ ONE ×2 (11:30→18:48)
[2019-12-03] MEDS ORDERED: Insulin LISPRO 300 UNITS/3 ML VIAL SQ SCH (21:30)
[2019-12-04] MEDS ORDERED: Insulin LISPRO 300 UNITS/3 ML VIAL SQ ONE (00:45)
[2019-12-04 04:54] LABS: Hematocrit 33.8 % (35.3-44.9); Hemoglobin 10.7 g/dL (11.5-15.4); Mean Corpuscular HGB Conc 31.7 g/dL (31.6-35.5); Mean Corpuscular Hemoglobin 30.4 pg (28.0-33.3); Mean Platelet Volume 11.5 fL (9.4-12.4); Platelet Count 176 K/mcL (140-400); Red Blood Count 3.52 M/mcL (3.82-4.97); Red Cell Distribution Width 14.3 % (11.5-14.5); White Blood Count 10.2 K/mcL (4.3-11.1)
[2019-12-04] MEDS: *HR* Heparin 5,000 UNIT/ML VIAL SQ SCH ×3 (05:02→18:11)
[2019-12-04 05:04] LABS: Calcium 9.1 mg/dL (8.6-10.3); Potassium 4.3 mEq/L (3.5-5.1)
[2019-12-04] MEDS: Budesonide/Formoterol 160/4.5 1 PUFF INH IH SCH ×2 (07:31→19:49)
[2019-12-04] MEDS: Ipratropium/Albuterol Neb 3 ML IH PRN ×2 (07:32→19:49)
[2019-12-04] MEDS: predniSONE 20 MG TABLET PO SCH (09:25)
[2019-12-04] MEDS: Gabapentin 300 MG CAPSULE PO SCH ×2 (09:25→20:25)
[2019-12-04] MEDS: Insulin DETEMIR 100 UNIT/ML X5UNITS SQ SCH (09:25)
[2019-12-04] MEDS: Insulin LISPRO 300 UNITS/3 ML VIAL SQ SCH ×7 (09:27→20:26)
[2019-12-04] MEDS ORDERED: 0.9 % Sodium Chloride 1,000 ML IVC SCH (14:00)
[2019-12-04] MEDS ORDERED: levoFLOXacin 750 MG/150 ML 750 MG/150 ML BAG IVPB SCH (18:00)
[2019-12-04] MEDS ORDERED: Insulin DETEMIR 100 UNIT/ML X5UNITS SQ SCH (21:00)
[2019-12-05 05:30] LABS: Basophils % 0.1 %; Hematocrit 32.6 % (35.3-44.9); Hemoglobin 10.6 g/dL (11.5-15.4); Immature Granulocytes % 0.8 % (0-4); Lymphocytes # 1.5 K/mcL (0.6-4.6); Lymphocytes % 19.8 %; Mean Corpuscular HGB Conc 32.5 g/dL (31.6-35.5); Mean Corpuscular Hemoglobin 31.1 pg (28.0-33.3); Mean Corpuscular Volume 95.6 fL (83.0-100.0); Mean Platelet Volume 11.2 fL (9.4-12.4); Monocytes # 0.5 K/mcL (0.0-1.3); Neutrophils # 5.6 K/mcL (1.6-8.9); Nucleated Red Blood Cells 0.4 /100 WBC (0); Platelet Count 156 K/mcL (140-400); Red Blood Count 3.41 M/mcL (3.82-4.97); Red Cell Distribution Width 13.9 % (11.5-14.5); Segmented Neutrophils % 72.3 %; White Blood Count 7.7 K/mcL (4.3-11.1)
[2019-12-05 05:49] LABS: Calcium 8.8 mg/dL (8.6-10.3)
[2019-12-05] MEDS: *HR* Heparin 5,000 UNIT/ML VIAL SQ SCH (05:58)
[2019-12-05 06:50] LABS: Estimated Average Glucose 258 mg/dl
[2019-12-05] MEDS: Insulin LISPRO 300 UNITS/3 ML VIAL SQ SCH ×4 (07:25→11:48)
[2019-12-05] MEDS: Gabapentin 300 MG CAPSULE PO SCH (07:28)
[2019-12-05] MEDS: predniSONE 20 MG TABLET PO SCH (07:28)
[2019-12-05] MEDS: Budesonide/Formoterol 160/4.5 1 PUFF INH IH SCH (07:45)
[2019-12-05] MEDS ORDERED: Insulin DETEMIR 100 UNIT/ML X5UNITS SQ SCH (09:00)
[2019-12-05 10:52] VITALS: BP 146/94
[2019-12-05] MEDS: Ipratropium/Albuterol Neb 3 ML IH PRN (11:19)
== END 2019-12-05 13:16 | disposition home or self-care (01) ==
LOC: 3BNU 18:17 → EMEROOARM 18:17 → SUATTDRO 21:52 → 3BNU 22:51
PROVIDERS: ADMIT Internal Medicine; ATTEND Internal Medicine

== ENCOUNTER 2020-04-21 15:52 | Inpatient (IN) ==
[2020-04-21 17:43] LABS: Basophils % 0.4 %; Eosinophils % 0.3 %; Hematocrit 32.8 % (35.3-44.9); Hemoglobin 10.3 g/dL (11.5-15.4); Immature Granulocytes % 1.5 % (0-4); Lymphocytes # 0.8 K/mcL (0.6-4.6); Lymphocytes % 10.5 %; Mean Corpuscular HGB Conc 31.4 g/dL (31.6-35.5); Mean Corpuscular Hemoglobin 30.2 pg (28.0-33.3); Mean Corpuscular Volume 96.2 fL (83.0-100.0); Mean Platelet Volume 10.6 fL (9.4-12.4); Monocytes # 0.2 K/mcL (0.0-1.3); Monocytes % 2.1 %; Neutrophils # 6.8 K/mcL (1.6-8.9); Nucleated Red Blood Cells 0.8 /100 WBC (0); Platelet Count 241 K/mcL (140-400); Red Blood Count 3.41 M/mcL (3.82-4.97); Red Cell Distribution Width 15.8 % (11.5-14.5); Segmented Neutrophils % 85.2 %
[2020-04-21] MEDS ORDERED: Furosemide 40 MG in 0.9 % Sodium Chloride 50 ML IV ONE (17:46)
[2020-04-21] MEDS ORDERED: Furosemide 40 MG/4 ML VIAL IV ONE (17:50)
[2020-04-21 18:05] LABS: Calcium 8.9 mg/dL (8.6-10.3); Potassium 3.9 mEq/L (3.5-5.1)
[2020-04-21 18:17] LABS: Troponin I 0.04 ng/mL (< 0.04)
[2020-04-21 21:40] LABS: Adenovirus Not Detected (Not Detect); Bordetella Pertussis Not Detected (Not Detect); Chlamydophila pneumoniae Not Detected (Not Detect); Coronavirus 229E Not Detected (Not Detect); Coronavirus HKU1 Not Detected (Not Detect); Coronavirus NL63 Not Detected (Not Detect); Coronavirus OC43 Not Detected (Not Detect); Human Metapneumovirus Not Detected (Not Detect); Human Rhinovirus/Enterovirus Not Detected (Not Detect); Influenza A Subtype 2009 H1 Not Detected (Not Detect); Influenza B Not Detected (Not Detect); Parainfluenza Virus 1 Not Detected (Not Detect); Parainfluenza Virus 2 Not Detected (Not Detect); Parainfluenza Virus 3 Not Detected (Not Detect); Parainfluenza Virus 4 Not Detected (Not Detect); Respiratory Syncytial Virus Not Detected (Not Detect)
[2020-04-21 21:41] LABS: Mycoplasma pneumoniae Not Detected (Not Detect)
[2020-04-21] MEDS ORDERED: Naloxone 0.4 MG/ML INJ IVP PRN (21:55)
[2020-04-21] MEDS ORDERED: Ondansetron 4 MG/2 ML VIAL IVP PRN (21:55)
[2020-04-21] MEDS ORDERED: Insulin DETEMIR 100 UNIT/ML X5UNITS SQ SCH (22:15)
[2020-04-21] MEDS ORDERED: *HR* Dextrose 50 % in Water (Vial) 50 ML VIAL IVP PRN (22:17)
[2020-04-21] MEDS ORDERED: Dextrose Gel 15 GM/37.5 ML TUBE PO PRN ×2 (22:17)
[2020-04-21] MEDS ORDERED: D5% in Water 1,000 ML IVC PRN (22:17)
[2020-04-21] MEDS ORDERED: Ipratropium/Albuterol Neb 3 ML IH PRN (22:28)
[2020-04-21] MEDS ORDERED: Insulin LISPRO 300 UNITS/3 ML VIAL SQ SCH (22:30)
[2020-04-21] MEDS ORDERED: Insulin LISPRO 300 UNITS/3 ML VIAL SQ ONE (23:06)
[2020-04-21] MEDS: Gabapentin 300 MG CAPSULE PO SCH (23:28)
[2020-04-21] MEDS: *HR* Heparin 5,000 UNIT/ML VIAL SQ SCH (23:29)
[2020-04-21] MEDS: Azithromycin 500 MG in 0.9 % Sodium Chloride 250 ML IVPB SCH (23:31)
[2020-04-22] MEDS: Insulin Human Regular 100 UNIT in 0.9 % Sodium Chloride 100 ML IVC SCH ×2 (01:08→07:08)
[2020-04-22] MEDS: *HR* Heparin 5,000 UNIT/ML VIAL SQ SCH ×3 (05:27→20:23)
[2020-04-22] MEDS: methylPREDNISolone 125 MG/2 ML VIAL IVP SCH ×2 (05:28→17:09)
[2020-04-22 07:13] LABS: Basophils % 0.3 %; Eosinophils % 0.2 %; Hematocrit 30.9 % (35.3-44.9); Hemoglobin 9.9 g/dL (11.5-15.4); Immature Granulocytes % 0.5 % (0-4); Lymphocytes # 2.2 K/mcL (0.6-4.6); Lymphocytes % 22.4 %; Mean Corpuscular Volume 96.9 fL (83.0-100.0); Mean Platelet Volume 10.5 fL (9.4-12.4); Monocytes # 0.6 K/mcL (0.0-1.3); Monocytes % 5.7 %; Neutrophils # 6.9 K/mcL (1.6-8.9); Nucleated Red Blood Cells 0.4 /100 WBC (0); Platelet Count 251 K/mcL (140-400); Red Blood Count 3.19 M/mcL (3.82-4.97); Red Cell Distribution Width 15.9 % (11.5-14.5); Segmented Neutrophils % 70.9 %; White Blood Count 9.7 K/mcL (4.3-11.1)
[2020-04-22 07:17] LABS: Prothrombin Time 11.9 Seconds (9.4-12.1)
[2020-04-22 07:34] LABS: Calcium 8.5 mg/dL (8.6-10.3); Magnesium 1.7 mg/dL (1.6-2.6); Phosphorous 3.2 mg/dL (2.7-4.5); Troponin I 0.03 ng/mL (< 0.04)
[2020-04-22] MEDS: Budesonide/Formoterol 160/4.5 1 PUFF INH IH SCH ×2 (07:35→21:51)
[2020-04-22 08:51] LABS: Estimated Average Glucose 220 mg/dl
[2020-04-22] MEDS ORDERED: Gabapentin 300 MG CAPSULE PO SCH (09:00)
[2020-04-22] MEDS ORDERED: Insulin DETEMIR 100 UNIT/ML X5UNITS SQ SCH ×2 (09:00→21:00)
[2020-04-22] MEDS: hydrALAZINE 25 MG TABLET PO SCH ×3 (09:47→20:22)
[2020-04-22] MEDS: Gabapentin 300 MG CAPSULE PO SCH ×3 (09:47→20:22)
[2020-04-22] MEDS: Furosemide 40 MG/4 ML VIAL IVP SCH ×2 (09:48→20:23)
[2020-04-22] MEDS: Insulin LISPRO 300 UNITS/3 ML VIAL SQ SCH ×6 (11:18→20:24)
[2020-04-22] MEDS: Acetaminophen 325 MG TABLET PO PRN (15:30)
[2020-04-22] MEDS: Azithromycin 500 MG in 0.9 % Sodium Chloride 250 ML IVPB SCH (17:11)
[2020-04-22] MEDS: Insulin DETEMIR 100 UNIT/ML X5UNITS SQ SCH (20:24)
[2020-04-22] MEDS ORDERED: Insulin LISPRO 300 UNITS/3 ML VIAL SQ ONE (23:02)
[2020-04-23] MEDS: Insulin Human Regular 100 UNIT in 0.9 % Sodium Chloride 100 ML IVC SCH ×2 (00:12→04:49)
[2020-04-23 02:34] LABS: Calcium 8.9 mg/dL (8.6-10.3); Potassium 3.6 mEq/L (3.5-5.1)
[2020-04-23] MEDS: *HR* Heparin 5,000 UNIT/ML VIAL SQ SCH ×3 (05:05→21:29)
[2020-04-23] MEDS: methylPREDNISolone 125 MG/2 ML VIAL IVP SCH (05:06)
[2020-04-23] MEDS: Budesonide/Formoterol 160/4.5 1 PUFF INH IH SCH ×2 (07:57→22:32)
[2020-04-23] MEDS: Insulin LISPRO 300 UNITS/3 ML VIAL SQ SCH ×7 (09:05→21:30)
[2020-04-23] MEDS: Insulin DETEMIR 100 UNIT/ML X5UNITS SQ SCH ×3 (09:06→21:30)
[2020-04-23] MEDS: Gabapentin 300 MG CAPSULE PO SCH ×3 (09:28→21:28)
[2020-04-23] MEDS: hydrALAZINE 25 MG TABLET PO SCH ×3 (09:28→21:28)
[2020-04-23] MEDS ORDERED: Albumin 25% 25gram/100mL 25 GM/100 ML IV.SOLN IVPB ONE (09:30)
[2020-04-23] MEDS ORDERED: Insulin DETEMIR 100 UNIT/ML X5UNITS SQ SCH (10:15)
[2020-04-23] MEDS: Azithromycin 500 MG in 0.9 % Sodium Chloride 250 ML IVPB SCH (16:48)
[2020-04-23] MEDS: Acetaminophen 325 MG TABLET PO PRN (21:39)
[2020-04-23] MEDS ORDERED: Insulin Human Regular 5 UNIT in 0.9 % Sodium Chloride 10 ML IV ONE (21:44)
[2020-04-24 03:26] LABS: Hematocrit 30.9 % (35.3-44.9); Hemoglobin 9.9 g/dL (11.5-15.4); Mean Corpuscular Volume 96.9 fL (83.0-100.0); Mean Platelet Volume 10.2 fL (9.4-12.4); Platelet Count 242 K/mcL (140-400); Red Blood Count 3.19 M/mcL (3.82-4.97); Red Cell Distribution Width 15.9 % (11.5-14.5); White Blood Count 10.9 K/mcL (4.3-11.1)
[2020-04-24 03:49] LABS: Calcium 8.5 mg/dL (8.6-10.3); Potassium 3.6 mEq/L (3.5-5.1)
[2020-04-24] MEDS: *HR* Heparin 5,000 UNIT/ML VIAL SQ SCH ×3 (05:44→20:28)
[2020-04-24] MEDS: Insulin DETEMIR 100 UNIT/ML X5UNITS SQ SCH ×2 (08:46→20:26)
[2020-04-24] MEDS: Insulin LISPRO 300 UNITS/3 ML VIAL SQ SCH ×7 (08:47→20:27)
[2020-04-24] MEDS ORDERED: methylPREDNISolone 125 MG/2 ML VIAL IVP SCH (09:00)
[2020-04-24] MEDS ORDERED: Albumin 25% 25gram/100mL 25 GM/100 ML IV.SOLN IVPB ONE (09:47)
[2020-04-24] MEDS: predniSONE 10 MG TABLET PO SCH ×2 (10:38→17:44)
[2020-04-24] MEDS: hydrALAZINE 25 MG TABLET PO SCH ×3 (10:38→20:25)
[2020-04-24] MEDS: Gabapentin 300 MG CAPSULE PO SCH ×3 (10:38→20:25)
[2020-04-24] MEDS: Ipratropium/Albuterol Neb 3 ML IH SCH ×3 (11:43→21:47)
[2020-04-24] MEDS: Budesonide/Formoterol 160/4.5 1 PUFF INH IH SCH ×2 (11:45→21:47)
[2020-04-24] MEDS: Azithromycin 250 MG TABLET PO SCH (12:09)
[2020-04-24] MEDS: Acetaminophen 325 MG TABLET PO PRN ×2 (14:26→20:38)
[2020-04-24] MEDS ORDERED: Insulin DETEMIR 100 UNIT/ML X5UNITS SQ ONE (16:44)
[2020-04-24] MEDS ORDERED: Insulin Human Regular 5 UNIT in 0.9 % Sodium Chloride 10 ML IV ONE (23:02)
[2020-04-25] MEDS ORDERED: Insulin LISPRO 300 UNITS/3 ML VIAL SQ ONE ×2 (01:25→04:23)
[2020-04-25 02:48] LABS: Calcium 8.8 mg/dL (8.6-10.3); Magnesium 2.2 mg/dL (1.6-2.6); Potassium 4.1 mEq/L (3.5-5.1)
[2020-04-25] MEDS: Ipratropium/Albuterol Neb 3 ML IH SCH ×4 (03:41→22:08)
[2020-04-25] MEDS ORDERED: Insulin Human Regular 5 UNIT in 0.9 % Sodium Chloride 10 ML IV ONE (04:45)
[2020-04-25] MEDS: *HR* Heparin 5,000 UNIT/ML VIAL SQ SCH ×3 (05:26→20:17)
[2020-04-25] MEDS: Gabapentin 300 MG CAPSULE PO SCH ×3 (08:33→20:12)
[2020-04-25] MEDS: predniSONE 10 MG TABLET PO SCH ×2 (08:35→17:21)
[2020-04-25] MEDS: Azithromycin 250 MG TABLET PO SCH (08:35)
[2020-04-25] MEDS: hydrALAZINE 25 MG TABLET PO SCH ×3 (08:35→20:13)
[2020-04-25] MEDS: Insulin LISPRO 300 UNITS/3 ML VIAL SQ SCH ×7 (08:36→20:14)
[2020-04-25] MEDS: Insulin DETEMIR 100 UNIT/ML X5UNITS SQ SCH ×2 (08:36→20:13)
[2020-04-25] MEDS: Budesonide/Formoterol 160/4.5 1 PUFF INH IH SCH ×2 (10:04→22:08)
[2020-04-25] MEDS ORDERED: Insulin DETEMIR 100 UNIT/ML X5UNITS SQ ONE (11:46)
[2020-04-25] MEDS ORDERED: Albumin 25% 25gram/100mL 25 GM/100 ML IV.SOLN IVPB ONE (11:49)
[2020-04-25] MEDS: Acetaminophen 325 MG TABLET PO PRN ×2 (14:14→20:25)
[2020-04-25] MEDS ORDERED: Insulin Human Regular 10 UNIT in 0.9 % Sodium Chloride 10 ML IV ONE (23:20)
[2020-04-26 01:56] LABS: Potassium 4.3 mEq/L (3.5-5.1)
[2020-04-26] MEDS: Ipratropium/Albuterol Neb 3 ML IH SCH ×2 (03:20→10:56)
[2020-04-26] MEDS ORDERED: Insulin LISPRO 300 UNITS/3 ML VIAL SQ ONE (04:48)
[2020-04-26] MEDS: *HR* Heparin 5,000 UNIT/ML VIAL SQ SCH (05:17)
[2020-04-26 06:45] VITALS: BP 149/79
[2020-04-26] MEDS: Acetaminophen 325 MG TABLET PO PRN (08:25)
[2020-04-26] MEDS: Azithromycin 250 MG TABLET PO SCH (08:26)
[2020-04-26] MEDS: predniSONE 10 MG TABLET PO SCH (08:26)
[2020-04-26] MEDS: hydrALAZINE 25 MG TABLET PO SCH (08:26)
[2020-04-26] MEDS: Gabapentin 300 MG CAPSULE PO SCH (08:26)
[2020-04-26] MEDS: Insulin LISPRO 300 UNITS/3 ML VIAL SQ SCH ×4 (08:27→12:05)
[2020-04-26] MEDS: Insulin DETEMIR 100 UNIT/ML X5UNITS SQ SCH (08:39)
[2020-04-26] MEDS: Budesonide/Formoterol 160/4.5 1 PUFF INH IH SCH (10:55)
== END 2020-04-26 13:37 | disposition home health service (06) | DRG 280 ==
LOC: EMEROOARM 15:52 → 2ANU 15:52 → SUATTDRO 21:43 → 2ANU 22:11 → 3BNU 04-24 23:33
PROVIDERS: ADMIT Internal Medicine; ATTEND Internal Medicine

== ENCOUNTER 2020-10-08 14:04 | Observation (INO) ==
[2020-10-08 15:55] LABS: Basophils % 0.2 %; Eosinophils % 0.2 %; Hematocrit 35.6 % (35.3-44.9); Hemoglobin 11.1 g/dL (11.5-15.4); Immature Granulocytes % 0.6 % (0-4); Lymphocytes # 1.2 K/mcL (0.6-4.6); Lymphocytes % 9.4 %; Mean Corpuscular HGB Conc 31.2 g/dL (31.6-35.5); Mean Corpuscular Hemoglobin 29.7 pg (28.0-33.3); Mean Corpuscular Volume 95.2 fL (83.0-100.0); Mean Platelet Volume 10.9 fL (9.4-12.4); Monocytes # 0.5 K/mcL (0.0-1.3); Monocytes % 4.2 %; Neutrophils # 10.8 K/mcL (1.6-8.9); Platelet Count 197 K/mcL (140-400); Red Blood Count 3.74 M/mcL (3.82-4.97); Red Cell Distribution Width 15.8 % (11.5-14.5); Segmented Neutrophils % 85.4 %; White Blood Count 12.6 K/mcL (4.3-11.1)
[2020-10-08 16:19] LABS: Calcium 8.9 mg/dL (8.6-10.3); Potassium 3.6 mEq/L (3.5-5.1); Troponin I 0.06 ng/mL (< 0.04)
[2020-10-08] MEDS: Nitroglycerin 0.4 MG TAB.SUBL SL SCH ×3 (17:22→22:12)
[2020-10-08] MEDS ORDERED: *HR* Heparin 5,000 UNIT/ML VIAL IVP ONE (17:24)
[2020-10-08] MEDS ORDERED: *HR* Heparin 5,000 UNIT/ML VIAL IVP PRN ×2 (17:24)
[2020-10-08] MEDS ORDERED: Heparin 25,000UNIT/250ML 1/2NS 25,000 UNIT/250 ML IV.SOLN IVC SCH (17:30)
[2020-10-08 18:11] LABS: INR 1.2; Prothrombin Time 13.4 Seconds (9.4-12.1)
[2020-10-08 18:23] LABS: Heparin anti-factor XA UFH 1.16 IU/mL (0.30-0.70)
[2020-10-08 19:01] LABS: Adenovirus Not Detected (Not Detect); Bordetella Pertussis Not Detected (Not Detect); Chlamydophila pneumoniae Not Detected (Not Detect); Coronavirus 229E Not Detected (Not Detect); Coronavirus HKU1 Not Detected (Not Detect); Coronavirus NL63 Not Detected (Not Detect); Coronavirus OC43 Not Detected (Not Detect); Human Metapneumovirus Not Detected (Not Detect); Human Rhinovirus/Enterovirus Not Detected (Not Detect); Influenza A Subtype 2009 H1 Not Detected (Not Detect); Influenza B Not Detected (Not Detect); Mycoplasma pneumoniae Not Detected (Not Detect); Parainfluenza Virus 1 Not Detected (Not Detect); Parainfluenza Virus 2 Not Detected (Not Detect); Parainfluenza Virus 3 Not Detected (Not Detect); Parainfluenza Virus 4 Not Detected (Not Detect); Respiratory Syncytial Virus Not Detected (Not Detect)
[2020-10-08 19:10] LABS: SARS-CoV-2 DETECTED (Not Detect)
[2020-10-08] MEDS ORDERED: Isovue-370 500 ML BOTTLE IVP ONE (19:25)
[2020-10-08] MEDS ORDERED: Acetaminophen 325 MG TABLET PO PRN (20:51)
[2020-10-08] MEDS ORDERED: Ondansetron 4 MG/2 ML VIAL IVP PRN (20:51)
[2020-10-08] MEDS ORDERED: Naloxone 0.4 MG/ML INJ IVP PRN (20:51)
[2020-10-08] MEDS ORDERED: D5% in Water 1,000 ML IVC PRN (20:59)
[2020-10-08] MEDS ORDERED: *HR* Dextrose 50 % in Water (Vial) 50 ML VIAL IVP PRN (20:59)
[2020-10-08] MEDS ORDERED: Dextrose Gel 15 GM/37.5 ML TUBE PO PRN ×2 (20:59)
[2020-10-08] MEDS ORDERED: Perflutren Lipid Microsphere 1.3 ML in 0.9 % Sodium Chloride 8.7 ML IVP PRN (21:05)
[2020-10-08] MEDS: Insulin DETEMIR 100 UNIT/ML X5UNITS SUBQ SCH (21:56)
[2020-10-09] MEDS: Insulin LISPRO 300 UNITS/3 ML VIAL SUBQ SCH ×5 (00:14→20:20)
[2020-10-09 00:50] LABS: Basophils # 0.1 K/mcL (0.0-0.2); Basophils % 0.6 %; Eosinophils % 0.2 %; Hematocrit 31.5 % (35.3-44.9); Hemoglobin 9.9 g/dL (11.5-15.4); Immature Granulocytes % 0.5 % (0-4); Lymphocytes # 1.8 K/mcL (0.6-4.6); Lymphocytes % 20.6 %; Mean Corpuscular HGB Conc 31.4 g/dL (31.6-35.5); Mean Corpuscular Hemoglobin 30.1 pg (28.0-33.3); Mean Corpuscular Volume 95.7 fL (83.0-100.0); Mean Platelet Volume 10.6 fL (9.4-12.4); Monocytes # 0.4 K/mcL (0.0-1.3); Monocytes % 4.9 %; Neutrophils # 6.2 K/mcL (1.6-8.9); Platelet Count 174 K/mcL (140-400); Red Blood Count 3.29 M/mcL (3.82-4.97); Red Cell Distribution Width 15.7 % (11.5-14.5); Segmented Neutrophils % 73.2 %; White Blood Count 8.5 K/mcL (4.3-11.1)
[2020-10-09 01:01] LABS: INR 1.1; Prothrombin Time 12.9 Seconds (9.4-12.1)
[2020-10-09 01:14] LABS: Bilirubin,Total 0.4 mg/dL (0.3-1.0); Calcium 8.3 mg/dL (8.6-10.3); Chol/HDL Ratio 2.6 (0-4.9); Globulin 2.9 g/dL (2.4-3.5); Magnesium 1.9 mg/dL (1.6-2.6); Phosphorous 3.1 mg/dL (2.7-4.5); Total Protein 5.9 g/dL (6.4-8.9)
[2020-10-09] MEDS: Dexamethasone Sodium Phos/PF 10 MG/ML VIAL IVP SCH (08:03)
[2020-10-09] MEDS: Insulin DETEMIR 100 UNIT/ML X5UNITS SUBQ SCH ×2 (08:41→20:14)
[2020-10-09] MEDS ORDERED: Furosemide 20 MG/2 ML VIAL IVP SCH (09:00)
[2020-10-09] MEDS: amLODIPine 5 MG TABLET PO SCH (18:04)
[2020-10-09] MEDS ORDERED: D5% in Water 1,000 ML IVC PRN (20:00)
[2020-10-09] MEDS ORDERED: Dextrose Gel 15 GM/37.5 ML TUBE PO PRN ×2 (20:00)
[2020-10-09] MEDS ORDERED: *HR* Dextrose 50 % in Water (Vial) 50 ML VIAL IVP PRN (20:00)
[2020-10-09] MEDS: Furosemide 20 MG/2 ML VIAL IVP SCH (20:18)
[2020-10-09] MEDS ORDERED: 0.9 % Sodium Chloride 250 ML ONE (23:17)
[2020-10-10] MEDS: Insulin LISPRO 300 UNITS/3 ML VIAL SUBQ SCH ×3 (00:53→13:03)
[2020-10-10 05:11] LABS: Basophils % 0.2 %; Hematocrit 31.3 % (35.3-44.9); Hemoglobin 9.9 g/dL (11.5-15.4); Immature Granulocytes % 0.6 % (0-4); Lymphocytes # 1.6 K/mcL (0.6-4.6); Lymphocytes % 25.4 %; Mean Corpuscular HGB Conc 31.6 g/dL (31.6-35.5); Mean Corpuscular Hemoglobin 30.3 pg (28.0-33.3); Mean Corpuscular Volume 95.7 fL (83.0-100.0); Mean Platelet Volume 10.2 fL (9.4-12.4); Monocytes # 0.4 K/mcL (0.0-1.3); Monocytes % 6.9 %; Neutrophils # 4.2 K/mcL (1.6-8.9); Platelet Count 188 K/mcL (140-400); Red Blood Count 3.27 M/mcL (3.82-4.97); Red Cell Distribution Width 15.2 % (11.5-14.5); Segmented Neutrophils % 66.9 %; White Blood Count 6.2 K/mcL (4.3-11.1)
[2020-10-10 05:22] LABS: Fibrinogen 582 mg/dL (169-393)
[2020-10-10 05:33] LABS: Alanine Aminotransferase 38 Units/L (7-52); Albumin 3.2 g/dL (3.5-5.7); Albumin/Globulin Ratio 0.9 (1.1-2.2); Alkaline Phosphatase 93 Units/L (34-104); Aspartate Amino Transferase 31 Units/L (13-39); BUN/Creatinine Ratio 21 (6-26); Bilirubin,Total 0.4 mg/dL (0.3-1.0); Blood Urea Nitrogen 23 mg/dL (8-23); Calcium 8.9 mg/dL (8.6-10.3); Carbon Dioxide 29 mEq/L (23-29); Chloride 102 mEq/L (98-107); Globulin 3.5 g/dL (2.4-3.5); Glucose 177 mg/dL (70-105); Osmolality,Calculated 302 (280-300); Phosphorous 4.1 mg/dL (2.7-4.5); Potassium 3.5 mEq/L (3.5-5.1); Sodium 142 mEq/L (136-145); Total Protein 6.7 g/dL (6.4-8.9); eGFR For African Americans > 60 (> 60); eGFR For Non-African Americans 50 (> 60)
[2020-10-10 05:35] LABS: D-Dimer 927 ng/mLFEU (0-500)
[2020-10-10 05:48] LABS: Ferritin 140 ng/mL (10-120)
[2020-10-10] MEDS ORDERED: *HR* Enoxaparin 40 MG/0.4 ML SYRINGE SQ SCH (06:00)
[2020-10-10] MEDS: amLODIPine 5 MG TABLET PO SCH (08:00)
[2020-10-10] MEDS: Insulin DETEMIR 100 UNIT/ML X5UNITS SUBQ SCH (08:01)
[2020-10-10] MEDS: Dexamethasone Sodium Phos/PF 10 MG/ML VIAL IVP SCH (08:01)
[2020-10-10] MEDS: Furosemide 20 MG/2 ML VIAL IVP SCH (08:02)
[2020-10-10] MEDS ORDERED: Valsartan 160 MG TABLET PO SCH (09:00)
[2020-10-10] MEDS ORDERED: Gabapentin 300 MG CAPSULE PO SCH (15:00)
[2020-10-10 16:08] VITALS: BP 178/80
[2020-10-10] MEDS ORDERED: Insulin LISPRO 300 UNITS/3 ML VIAL SUBQ SCH ×3 (16:30→21:00)
[2020-10-11] MEDS ORDERED: amLODIPine 5 MG TABLET PO SCH (09:00)
== END 2020-10-10 19:34 ==
LOC: EMEROOARM 14:04 → 2NENU 14:04 → SUATTDRO 20:24 → 2NENU 22:07
PROVIDERS: ADMIT Internal Medicine; ATTEND Internal Medicine

== ENCOUNTER 2020-11-07 22:45 | Observation (INO) ==
[2020-11-08] MEDS ORDERED: Ondansetron ODT 4 MG TAB.RAPDIS SL PRN (01:29)
[2020-11-08] MEDS ORDERED: Naloxone 0.4 MG/ML INJ IVP PRN (01:29)
[2020-11-08] MEDS ORDERED: D5% in Water 1,000 ML IVC PRN (01:31)
[2020-11-08] MEDS ORDERED: *HR* Dextrose 50 % in Water (Vial) 50 ML VIAL IVP PRN (01:31)
[2020-11-08] MEDS ORDERED: Dextrose Gel 15 GM/37.5 ML TUBE PO PRN ×2 (01:31)
[2020-11-08 02:18] LABS: Basophils % 0.5 %; Eosinophils # 0.2 K/mcL (0.0-0.6); Eosinophils % 2.9 %; Hematocrit 32.1 % (35.3-44.9); Hemoglobin 10.1 g/dL (11.5-15.4); Immature Granulocytes % 1.4 % (0-4); Lymphocytes # 1.6 K/mcL (0.6-4.6); Lymphocytes % 24.9 %; Mean Corpuscular HGB Conc 31.5 g/dL (31.6-35.5); Mean Corpuscular Volume 95.3 fL (83.0-100.0); Monocytes # 0.5 K/mcL (0.0-1.3); Monocytes % 7.8 %; Neutrophils # 3.9 K/mcL (1.6-8.9); Nucleated Red Blood Cells 0.6 /100 WBC (0); Platelet Count 239 K/mcL (140-400); Red Blood Count 3.37 M/mcL (3.82-4.97); Red Cell Distribution Width 16.1 % (11.5-14.5); Segmented Neutrophils % 62.5 %; White Blood Count 6.3 K/mcL (4.3-11.1)
[2020-11-08 02:19] LABS: INR 1.1; Prothrombin Time 12.7 Seconds (9.4-12.1)
[2020-11-08 02:32] LABS: Albumin 3.1 g/dL (3.5-5.7); Bilirubin,Total 0.6 mg/dL (0.3-1.0); Calcium 8.9 mg/dL (8.6-10.3); Globulin 3.2 g/dL (2.4-3.5); Potassium 3.9 mEq/L (3.5-5.1); Total Protein 6.3 g/dL (6.4-8.9)
[2020-11-08 02:37] LABS: Troponin I 0.04 ng/mL (< 0.04)
[2020-11-08] MEDS: Ipratropium/Albuterol Neb 3 ML IH SCH ×6 (04:28→22:35)
[2020-11-08] MEDS: *HR* Enoxaparin 40 MG/0.4 ML SYRINGE SQ SCH ×2 (05:59→16:07)
[2020-11-08] MEDS: Insulin LISPRO 300 UNITS/3 ML VIAL SUBQ SCH ×3 (07:57→16:07)
[2020-11-08] MEDS: Furosemide 40 MG/4 ML VIAL IVP SCH ×2 (08:02→16:07)
[2020-11-08] MEDS ORDERED: predniSONE 10 MG TABLET PO SCH (09:00)
[2020-11-08] MEDS: Benzonatate 100 MG CAPSULE PO PRN ×2 (16:15→20:05)
[2020-11-08] MEDS: Acetaminophen 325 MG TABLET PO PRN (20:05)
[2020-11-08] MEDS ORDERED: Insulin LISPRO 300 UNITS/3 ML VIAL SUBQ SCH (21:00)
[2020-11-08] MEDS ORDERED: Insulin DETEMIR 100 UNIT/ML X5UNITS SUBQ SCH (21:00)
[2020-11-09] MEDS ORDERED: hydrALAZINE 10 MG TABLET PO ONE (00:42)
[2020-11-09] MEDS: Ipratropium/Albuterol Neb 3 ML IH SCH ×2 (03:13→09:55)
[2020-11-09] MEDS ORDERED: hydrALAZINE 25 MG TABLET ONE (03:45)
[2020-11-09] MEDS ORDERED: *HR* Labetalol 20 MG/4 ML SYRINGE IVP ONE (03:45)
[2020-11-09 05:58] LABS: Calcium 9.3 mg/dL (8.6-10.3); Magnesium 1.8 mg/dL (1.6-2.6); Phosphorous 4.4 mg/dL (2.7-4.5); Potassium 3.7 mEq/L (3.5-5.1)
[2020-11-09 06:25] LABS: Hematocrit 33.5 % (35.3-44.9); Hemoglobin 10.3 g/dL (11.5-15.4); Mean Corpuscular HGB Conc 30.7 g/dL (31.6-35.5); Mean Corpuscular Hemoglobin 30.7 pg (28.0-33.3); Mean Corpuscular Volume 99.7 fL (83.0-100.0); Mean Platelet Volume 10.5 fL (9.4-12.4); Platelet Count 243 K/mcL (140-400); Red Blood Count 3.36 M/mcL (3.82-4.97); Red Cell Distribution Width 16.4 % (11.5-14.5); White Blood Count 5.1 K/mcL (4.3-11.1)
[2020-11-09] MEDS: *HR* Enoxaparin 40 MG/0.4 ML SYRINGE SQ SCH (07:18)
[2020-11-09] MEDS: Acetaminophen 325 MG TABLET PO PRN (08:34)
[2020-11-09] MEDS: Benzonatate 100 MG CAPSULE PO PRN (08:35)
[2020-11-09] MEDS: Insulin LISPRO 300 UNITS/3 ML VIAL SUBQ SCH ×2 (08:36→11:58)
[2020-11-09] MEDS: Furosemide 40 MG/4 ML VIAL IVP SCH (08:37)
[2020-11-09] MEDS ORDERED: amLODIPine 5 MG TABLET PO SCH (09:00)
[2020-11-09] MEDS ORDERED: predniSONE 10 MG TABLET PO SCH (09:00)
[2020-11-09 11:08] VITALS: BP 163/102
[2020-11-09] MEDS ORDERED: Insulin DETEMIR 100 UNIT/ML X5UNITS SUBQ SCH (21:00)
[2020-11-10] MEDS ORDERED: Valsartan 160 MG TABLET PO SCH (09:00)
== END 2020-11-09 13:20 | disposition home health service (06) ==
LOC: 2NENU → SUATTDRO 11-08 01:01
PROVIDERS: ADMIT Internal Medicine; ATTEND Internal Medicine

== ENCOUNTER 2020-12-04 11:47 | Inpatient (IN) ==
[2020-12-04] MEDS ORDERED: Furosemide 40 MG/4 ML VIAL IVP ONE (12:07)
[2020-12-04] MEDS ORDERED: methylPREDNISolone 125 MG/2 ML VIAL IVP ONE (12:07)
[2020-12-04] MEDS ORDERED: Ipratropium/Albuterol Neb 3 ML IH ONE (12:07)
[2020-12-04 12:30] LABS: Hemoglobin 10.1 g/dL (11.5-15.4)
[2020-12-04 12:30] LABS: VBG HCO3 29 mEq/L (21-27); VBG PCO2 52 mmHg (41-51); VBG PH 7.35 pH Units (7.32-7.42); VBG PO2 55 mmHg (25-50)
[2020-12-04 12:32] LABS: Basophils % 0.1 %; Hematocrit 32.7 % (35.3-44.9); Immature Granulocytes % 0.9 % (0-4); Immature Platelets 4.9 % (1.1-6.1); Lymphocytes # 1.1 K/mcL (0.6-4.6); Lymphocytes % 10.1 %; Mean Corpuscular HGB Conc 30.9 g/dL (31.6-35.5); Mean Corpuscular Hemoglobin 29.9 pg (28.0-33.3); Mean Corpuscular Volume 96.7 fL (83.0-100.0); Mean Platelet Volume 10.9 fL (9.4-12.4); Monocytes # 0.4 K/mcL (0.0-1.3); Monocytes % 3.6 %; Nucleated Red Blood Cells 0.5 /100 WBC (0); Platelet Count 212 K/mcL (140-400); Red Blood Count 3.38 M/mcL (3.82-4.97); Red Cell Distribution Width 17.1 % (11.5-14.5); Segmented Neutrophils % 85.3 %
[2020-12-04 12:35] LABS: Neutrophils # 9.4 K/mcL (1.6-8.9)
[2020-12-04 12:54] LABS: INR 1.1; Prothrombin Time 12.5 Seconds (9.4-12.1)
[2020-12-04 13:02] LABS: Calcium 8.9 mg/dL (8.6-10.3); Potassium 3.6 mEq/L (3.5-5.1); Troponin I 0.03 ng/mL (< 0.04)
[2020-12-04] MEDS ORDERED: Isovue-370 500 ML BOTTLE IVP ONE (13:12)
[2020-12-04] MEDS: levoFLOXacin 500 MG/100 ML 500 MG/100 ML BAG IVPB ONE ×2 (13:20→14:09)
[2020-12-04] MEDS ORDERED: Mag Hydrox/Al Hydrox/Simeth 30 ML UDC PO PRN (16:15)
[2020-12-04] MEDS ORDERED: Ondansetron ODT 4 MG TAB.RAPDIS SL PRN (16:15)
[2020-12-04] MEDS ORDERED: MOM Conc 10 ML UD.LIQ PO PRN (16:15)
[2020-12-04] MEDS ORDERED: Naloxone 0.4 MG/ML INJ IVP PRN (16:15)
[2020-12-04] MEDS ORDERED: Melatonin 3 MG TABLET PO PRN (16:15)
[2020-12-04] MEDS ORDERED: D5% in Water 1,000 ML IVC PRN (16:21)
[2020-12-04] MEDS ORDERED: *HR* Dextrose 50 % in Water (Vial) 50 ML VIAL IVP PRN (16:21)
[2020-12-04] MEDS ORDERED: Dextrose Gel 15 GM/37.5 ML TUBE PO PRN ×2 (16:21)
[2020-12-04] MEDS: Insulin LISPRO 300 UNITS/3 ML VIAL SUBQ SCH (17:21)
[2020-12-04] MEDS ORDERED: Insulin LISPRO 300 UNITS/3 ML VIAL SUBQ ONE (17:38)
[2020-12-04] MEDS: Insulin Human Regular 100 UNIT in 0.9 % Sodium Chloride 100 ML IVC SCH (19:59)
[2020-12-04 20:31] LABS: Adenovirus Not Detected (Not Detect); Coronavirus 229E Not Detected (Not Detect); Coronavirus HKU1 Not Detected (Not Detect); Coronavirus NL63 Not Detected (Not Detect); Coronavirus OC43 Not Detected (Not Detect)
[2020-12-04 20:33] LABS: Human Metapneumovirus Not Detected (Not Detect); Human Rhinovirus/Enterovirus Not Detected (Not Detect); SARS-CoV-2 DETECTED (Not Detect)
[2020-12-04 20:34] LABS: Bordetella Pertussis Not Detected (Not Detect); Chlamydophila pneumoniae Not Detected (Not Detect); Influenza A Subtype 2009 H1 Not Detected (Not Detect); Influenza B Not Detected (Not Detect); Mycoplasma pneumoniae Not Detected (Not Detect); Parainfluenza Virus 1 Not Detected (Not Detect); Parainfluenza Virus 2 Not Detected (Not Detect); Parainfluenza Virus 3 Not Detected (Not Detect); Parainfluenza Virus 4 Not Detected (Not Detect); Respiratory Syncytial Virus Not Detected (Not Detect)
[2020-12-04] MEDS ORDERED: Insulin DETEMIR 100 UNIT/ML X5UNITS SUBQ SCH (21:00)
[2020-12-04] MEDS: MethylPREDNISolone 40 MG/ML VIAL IVP SCH (23:43)
[2020-12-05] MEDS: Insulin Human Regular 100 UNIT in 0.9 % Sodium Chloride 100 ML IVC SCH (01:12)
[2020-12-05] MEDS ORDERED: Insulin Human Regular 250 UNIT in 0.9 % Sodium Chloride 250 ML IVC SCH (02:30)
[2020-12-05 04:26] LABS: Hematocrit 34.8 % (35.3-44.9); Mean Corpuscular HGB Conc 31.6 g/dL (31.6-35.5); Mean Corpuscular Hemoglobin 30.7 pg (28.0-33.3); Mean Corpuscular Volume 97.2 fL (83.0-100.0); Mean Platelet Volume 10.8 fL (9.4-12.4); Platelet Count 234 K/mcL (140-400); Red Blood Count 3.58 M/mcL (3.82-4.97); Red Cell Distribution Width 17.2 % (11.5-14.5); White Blood Count 13.1 K/mcL (4.3-11.1)
[2020-12-05] MEDS: *HR* Enoxaparin 40 MG/0.4 ML SYRINGE SQ SCH (04:35)
[2020-12-05 04:46] LABS: Albumin 3.9 g/dL (3.5-5.7); Albumin/Globulin Ratio 1.2 (1.1-2.2); Bilirubin,Total 0.4 mg/dL (0.3-1.0); Calcium 9.5 mg/dL (8.6-10.3); Globulin 3.3 g/dL (2.4-3.5); Potassium 3.3 mEq/L (3.5-5.1); Total Protein 7.2 g/dL (6.4-8.9)
[2020-12-05 08:39] LABS: Estimated Average Glucose 186 mg/dl; Hemoglobin A1C 8.1 %
[2020-12-05] MEDS: MethylPREDNISolone 40 MG/ML VIAL IVP SCH (09:32)
[2020-12-05] MEDS: Insulin LISPRO 300 UNITS/3 ML VIAL SUBQ SCH ×5 (11:35→20:50)
[2020-12-05] MEDS ORDERED: Benzonatate 100 MG CAPSULE PO PRN (12:14)
[2020-12-05] MEDS: levoFLOXacin 750 MG/150 ML 750 MG/150 ML BAG IVPB SCH (13:29)
[2020-12-05] MEDS: Insulin DETEMIR 100 UNIT/ML X5UNITS SUBQ SCH ×2 (13:46→20:50)
[2020-12-05] MEDS: Gabapentin 300 MG CAPSULE PO SCH ×2 (15:22→20:50)
[2020-12-05] MEDS: Furosemide 20 MG TABLET PO SCH (16:52)
[2020-12-06] MEDS: *HR* Enoxaparin 40 MG/0.4 ML SYRINGE SQ SCH (06:26)
[2020-12-06] MEDS: Insulin LISPRO 300 UNITS/3 ML VIAL SUBQ SCH ×7 (07:47→21:02)
[2020-12-06] MEDS: Insulin DETEMIR 100 UNIT/ML X5UNITS SUBQ SCH ×2 (07:48→21:02)
[2020-12-06] MEDS: Valsartan 160 MG TABLET PO SCH (07:49)
[2020-12-06] MEDS: *HR* SitaGLIPtin 100 MG TABLET PO SCH (07:50)
[2020-12-06] MEDS: Furosemide 20 MG TABLET PO SCH ×2 (07:50→16:36)
[2020-12-06] MEDS: Gabapentin 300 MG CAPSULE PO SCH ×3 (07:51→21:01)
[2020-12-06] MEDS: amLODIPine 5 MG TABLET PO SCH (07:51)
[2020-12-06] MEDS: MethylPREDNISolone 40 MG/ML VIAL IVP SCH (07:52)
[2020-12-06] MEDS: Ipratropium/Albuterol Neb 3 ML IH PRN (11:13)
[2020-12-06] MEDS: levoFLOXacin 750 MG/150 ML 750 MG/150 ML BAG IVPB SCH (14:24)
[2020-12-07 01:43] LABS: Calcium 8.9 mg/dL (8.6-10.3); Potassium 4.5 mEq/L (3.5-5.1)
[2020-12-07] MEDS: *HR* Enoxaparin 40 MG/0.4 ML SYRINGE SQ SCH (06:06)
[2020-12-07] MEDS: Valsartan 160 MG TABLET PO SCH (08:33)
[2020-12-07] MEDS: amLODIPine 5 MG TABLET PO SCH (08:33)
[2020-12-07] MEDS: *HR* SitaGLIPtin 100 MG TABLET PO SCH (08:33)
[2020-12-07] MEDS: Gabapentin 300 MG CAPSULE PO SCH ×3 (08:34→20:31)
[2020-12-07] MEDS: MethylPREDNISolone 40 MG/ML VIAL IVP SCH (08:35)
[2020-12-07] MEDS: Insulin LISPRO 300 UNITS/3 ML VIAL SUBQ SCH ×7 (08:35→20:32)
[2020-12-07] MEDS: Insulin DETEMIR 100 UNIT/ML X5UNITS SUBQ SCH ×2 (08:38→20:32)
[2020-12-07] MEDS: Ipratropium/Albuterol Neb 3 ML IH PRN (22:33)
[2020-12-08 01:58] LABS: Hematocrit 33.2 % (35.3-44.9); Hemoglobin 10.2 g/dL (11.5-15.4); Mean Corpuscular HGB Conc 30.7 g/dL (31.6-35.5); Mean Corpuscular Hemoglobin 29.8 pg (28.0-33.3); Mean Corpuscular Volume 97.1 fL (83.0-100.0); Mean Platelet Volume 10.9 fL (9.4-12.4); Platelet Count 198 K/mcL (140-400); Red Blood Count 3.42 M/mcL (3.82-4.97); Red Cell Distribution Width 16.8 % (11.5-14.5); White Blood Count 9.6 K/mcL (4.3-11.1)
[2020-12-08 02:19] LABS: Calcium 8.7 mg/dL (8.6-10.3); Potassium 4.3 mEq/L (3.5-5.1)
[2020-12-08] MEDS: *HR* Enoxaparin 40 MG/0.4 ML SYRINGE SQ SCH (04:15)
[2020-12-08] MEDS ORDERED: Insulin LISPRO 300 UNITS/3 ML VIAL SUBQ SCH (08:00)
[2020-12-08] MEDS: amLODIPine 5 MG TABLET PO SCH (08:33)
[2020-12-08] MEDS: predniSONE 20 MG TABLET PO SCH (08:33)
[2020-12-08] MEDS: Insulin DETEMIR 100 UNIT/ML X5UNITS SUBQ SCH ×2 (08:33→20:52)
[2020-12-08] MEDS: Gabapentin 300 MG CAPSULE PO SCH ×3 (08:33→20:52)
[2020-12-08] MEDS: Valsartan 160 MG TABLET PO SCH (08:33)
[2020-12-08] MEDS: *HR* SitaGLIPtin 100 MG TABLET PO SCH (08:34)
[2020-12-08] MEDS: Insulin LISPRO 300 UNITS/3 ML VIAL SUBQ SCH ×6 (08:34→20:53)
[2020-12-08] MEDS ORDERED: levoFLOXacin 750 MG/150 ML 750 MG/150 ML BAG IVPB SCH (14:00)
[2020-12-08] MEDS: Furosemide 20 MG TABLET PO SCH (16:15)
[2020-12-09] MEDS: *HR* Enoxaparin 40 MG/0.4 ML SYRINGE SQ SCH (04:32)
[2020-12-09 07:17] LABS: Calcium 8.8 mg/dL (8.6-10.3); Potassium 4.1 mEq/L (3.5-5.1)
[2020-12-09] MEDS ORDERED: Furosemide 20 MG TABLET PO SCH (08:00)
[2020-12-09] MEDS: Insulin LISPRO 300 UNITS/3 ML VIAL SUBQ SCH ×4 (08:22→12:27)
[2020-12-09] MEDS: Insulin DETEMIR 100 UNIT/ML X5UNITS SUBQ SCH (08:22)
[2020-12-09] MEDS: Valsartan 160 MG TABLET PO SCH (08:23)
[2020-12-09] MEDS: *HR* SitaGLIPtin 100 MG TABLET PO SCH (08:23)
[2020-12-09] MEDS: amLODIPine 5 MG TABLET PO SCH (08:23)
[2020-12-09] MEDS: predniSONE 20 MG TABLET PO SCH (08:23)
[2020-12-09] MEDS: Gabapentin 300 MG CAPSULE PO SCH (08:23)
[2020-12-09] MEDS: Furosemide 20 MG TABLET PO SCH (08:23)
[2020-12-09 11:23] VITALS: BP 146/70
[2020-12-10] MEDS ORDERED: levoFLOXacin 750 MG TABLET PO SCH (14:00)
== END 2020-12-09 13:04 | disposition home health service (06) | DRG 177 ==
LOC: 2ANU 11:47 → EMEROOARM 11:47 → 2ANU 16:49 → SUATTDRO 12-06 15:06
PROVIDERS: ADMIT Internal Medicine; ATTEND Internal Medicine

== ENCOUNTER 2021-01-04 12:50 | Inpatient (IN) ==
[2021-01-04] MEDS ORDERED: Ipratropium/Albuterol Neb 3 ML IH ONE (13:41)
[2021-01-04] MEDS ORDERED: methylPREDNISolone 125 MG/2 ML VIAL IVP ONE (13:41)
[2021-01-04 14:06] LABS: Basophils % 0.2 %; Eosinophils # 0.2 K/mcL (0.0-0.6); Eosinophils % 2.4 %; Hematocrit 33.1 % (35.3-44.9); Hemoglobin 10.2 g/dL (11.5-15.4); Immature Granulocytes % 0.6 % (0-4); Lymphocytes # 2.6 K/mcL (0.6-4.6); Mean Corpuscular HGB Conc 30.8 g/dL (31.6-35.5); Mean Corpuscular Hemoglobin 29.9 pg (28.0-33.3); Mean Corpuscular Volume 97.1 fL (83.0-100.0); Mean Platelet Volume 10.5 fL (9.4-12.4); Monocytes # 0.7 K/mcL (0.0-1.3); Monocytes % 7.9 %; Neutrophils # 4.9 K/mcL (1.6-8.9); Nucleated Red Blood Cells 0.5 /100 WBC (0); Platelet Count 303 K/mcL (140-400); Red Blood Count 3.41 M/mcL (3.82-4.97); Red Cell Distribution Width 17.6 % (11.5-14.5); Segmented Neutrophils % 57.9 %; White Blood Count 8.5 K/mcL (4.3-11.1)
[2021-01-04 14:28] LABS: Troponin I 0.04 ng/mL (< 0.04)
[2021-01-04 15:14] LABS: Albumin 3.4 g/dL (3.5-5.7); Albumin/Globulin Ratio 1.1 (1.1-2.2); Bilirubin,Total 0.6 mg/dL (0.3-1.0); Calcium 9.3 mg/dL (8.6-10.3); Potassium 3.3 mEq/L (3.5-5.1); Total Protein 6.4 g/dL (6.4-8.9)
[2021-01-04] MEDS ORDERED: Furosemide 40 MG/4 ML VIAL IVP ONE (15:21)
[2021-01-04] MEDS ORDERED: Potassium Chloride Elixir 20 MEQ/15 ML UDC PO ONE (15:22)
[2021-01-04] MEDS ORDERED: *HR* Dextrose 50 % in Water (Vial) 50 ML VIAL IVP PRN (15:55)
[2021-01-04] MEDS ORDERED: Ondansetron 4 MG/2 ML VIAL IVP PRN (15:55)
[2021-01-04] MEDS ORDERED: D5% in Water 1,000 ML IVC PRN (15:55)
[2021-01-04] MEDS ORDERED: Naloxone 0.4 MG/ML INJ IVP PRN (15:55)
[2021-01-04] MEDS ORDERED: Dextrose Gel 15 GM/37.5 ML TUBE PO PRN ×2 (15:55)
[2021-01-04] MEDS: Albuterol 2.5 MG/3 ML NEBULIZER IH SCH ×2 (16:17→20:15)
[2021-01-04] MEDS ORDERED: Insulin LISPRO 300 UNITS/3 ML VIAL SUBQ SCH ×2 (16:30→17:00)
[2021-01-04] MEDS: levoFLOXacin 750 MG/150 ML 750 MG/150 ML BAG IVPB SCH (18:44)
[2021-01-04] MEDS: *HR* Heparin 5,000 UNIT/ML VIAL SQ SCH (18:44)
[2021-01-04] MEDS: Insulin DETEMIR 100 UNIT/ML X5UNITS SUBQ SCH (20:50)
[2021-01-04] MEDS: Insulin LISPRO 300 UNITS/3 ML VIAL SUBQ SCH (23:54)
[2021-01-05] MEDS: Albuterol 2.5 MG/3 ML NEBULIZER IH SCH ×7 (00:05→23:15)
[2021-01-05] MEDS: *HR* Heparin 5,000 UNIT/ML VIAL SQ SCH ×2 (05:51→16:26)
[2021-01-05 06:58] LABS: Calcium 9.2 mg/dL (8.6-10.3); Potassium 4.6 mEq/L (3.5-5.1)
[2021-01-05 07:32] LABS: Basophils % 0.1 %; Hematocrit 30.5 % (35.3-44.9); Hemoglobin 9.6 g/dL (11.5-15.4); Immature Granulocytes % 1.7 % (0-4); Lymphocytes # 0.8 K/mcL (0.6-4.6); Lymphocytes % 10.9 %; Mean Corpuscular HGB Conc 31.5 g/dL (31.6-35.5); Mean Corpuscular Hemoglobin 29.7 pg (28.0-33.3); Mean Corpuscular Volume 94.4 fL (83.0-100.0); Mean Platelet Volume 10.6 fL (9.4-12.4); Monocytes # 0.3 K/mcL (0.0-1.3); Monocytes % 4.1 %; Neutrophils # 5.9 K/mcL (1.6-8.9); Nucleated Red Blood Cells 0.4 /100 WBC (0); Platelet Count 258 K/mcL (140-400); Red Blood Count 3.23 M/mcL (3.82-4.97); Red Cell Distribution Width 17.1 % (11.5-14.5); Segmented Neutrophils % 83.2 %; White Blood Count 7.1 K/mcL (4.3-11.1)
[2021-01-05] MEDS: Insulin LISPRO 300 UNITS/3 ML VIAL SUBQ SCH ×7 (08:32→20:47)
[2021-01-05] MEDS: Insulin DETEMIR 100 UNIT/ML X5UNITS SUBQ SCH ×2 (08:34→20:46)
[2021-01-05] MEDS: Furosemide 20 MG/2 ML VIAL IVP SCH (08:34)
[2021-01-05] MEDS ORDERED: MethylPREDNISolone 40 MG/ML VIAL IVP SCH (09:00)
[2021-01-05] MEDS ORDERED: Insulin Human Regular 20 UNIT in 0.9 % Sodium Chloride 10 ML IV ONE (16:17)
[2021-01-05] MEDS ORDERED: Benzonatate 100 MG CAPSULE PO PRN (17:09)
[2021-01-05] MEDS: Gabapentin 300 MG CAPSULE PO SCH (18:13)
[2021-01-06] MEDS: Albuterol 2.5 MG/3 ML NEBULIZER IH SCH ×6 (04:10→23:22)
[2021-01-06] MEDS: *HR* Heparin 5,000 UNIT/ML VIAL SQ SCH ×2 (05:14→16:57)
[2021-01-06 06:05] LABS: Hemoglobin 9.7 g/dL (11.5-15.4); Mean Corpuscular HGB Conc 30.3 g/dL (31.6-35.5); Mean Corpuscular Hemoglobin 29.9 pg (28.0-33.3); Mean Corpuscular Volume 98.8 fL (83.0-100.0); Mean Platelet Volume 10.7 fL (9.4-12.4); Platelet Count 282 K/mcL (140-400); Red Blood Count 3.24 M/mcL (3.82-4.97); Red Cell Distribution Width 17.6 % (11.5-14.5); White Blood Count 9.5 K/mcL (4.3-11.1)
[2021-01-06 06:20] LABS: Calcium 9.6 mg/dL (8.6-10.3); Potassium 3.6 mEq/L (3.5-5.1)
[2021-01-06] MEDS: Insulin DETEMIR 100 UNIT/ML X5UNITS SUBQ SCH ×2 (08:27→20:18)
[2021-01-06] MEDS: Insulin LISPRO 300 UNITS/3 ML VIAL SUBQ SCH ×7 (08:27→20:19)
[2021-01-06] MEDS: amLODIPine 5 MG TABLET PO SCH (08:29)
[2021-01-06] MEDS: Gabapentin 300 MG CAPSULE PO SCH ×3 (08:29→20:19)
[2021-01-06] MEDS ORDERED: predniSONE 20 MG TABLET PO SCH (09:00)
[2021-01-06] MEDS: MethylPREDNISolone 40 MG/ML VIAL IVP SCH (09:15)
[2021-01-06] MEDS: levoFLOXacin 750 MG/150 ML 750 MG/150 ML BAG IVPB SCH (16:58)
[2021-01-06] MEDS: Furosemide 20 MG/2 ML VIAL IVP SCH (20:19)
[2021-01-07 03:37] LABS: Hematocrit 32.2 % (35.3-44.9); Mean Corpuscular HGB Conc 31.1 g/dL (31.6-35.5); Mean Corpuscular Hemoglobin 30.4 pg (28.0-33.3); Mean Corpuscular Volume 97.9 fL (83.0-100.0); Mean Platelet Volume 10.9 fL (9.4-12.4); Platelet Count 246 K/mcL (140-400); Red Blood Count 3.29 M/mcL (3.82-4.97); Red Cell Distribution Width 17.4 % (11.5-14.5); White Blood Count 9.6 K/mcL (4.3-11.1)
[2021-01-07 03:54] LABS: Calcium 9.2 mg/dL (8.6-10.3); Potassium 4.3 mEq/L (3.5-5.1)
[2021-01-07] MEDS: Albuterol 2.5 MG/3 ML NEBULIZER IH SCH ×6 (03:54→22:53)
[2021-01-07] MEDS: *HR* Heparin 5,000 UNIT/ML VIAL SQ SCH ×2 (06:17→17:42)
[2021-01-07] MEDS: Insulin LISPRO 300 UNITS/3 ML VIAL SUBQ SCH ×7 (08:48→21:50)
[2021-01-07] MEDS: Furosemide 20 MG/2 ML VIAL IVP SCH ×2 (08:49→20:39)
[2021-01-07] MEDS: Insulin DETEMIR 100 UNIT/ML X5UNITS SUBQ SCH ×2 (08:49→20:39)
[2021-01-07] MEDS: MethylPREDNISolone 40 MG/ML VIAL IVP SCH (08:50)
[2021-01-07] MEDS: amLODIPine 5 MG TABLET PO SCH (08:50)
[2021-01-07] MEDS: Gabapentin 300 MG CAPSULE PO SCH ×3 (08:50→20:39)
[2021-01-07] MEDS ORDERED: Insulin Human Regular 20 UNIT in 0.9 % Sodium Chloride 10 ML IV ONE (18:45)
[2021-01-08] MEDS: Albuterol 2.5 MG/3 ML NEBULIZER IH SCH ×4 (03:08→11:03)
[2021-01-08] MEDS: *HR* Heparin 5,000 UNIT/ML VIAL SQ SCH (05:41)
[2021-01-08 08:02] VITALS: BP 141/68
[2021-01-08] MEDS: Insulin LISPRO 300 UNITS/3 ML VIAL SUBQ SCH ×3 (08:10→11:48)
[2021-01-08] MEDS: Insulin DETEMIR 100 UNIT/ML X5UNITS SUBQ SCH (08:11)
[2021-01-08] MEDS: Gabapentin 300 MG CAPSULE PO SCH (08:12)
[2021-01-08] MEDS: Furosemide 20 MG/2 ML VIAL IVP SCH (08:12)
[2021-01-08] MEDS: amLODIPine 5 MG TABLET PO SCH (08:12)
[2021-01-08] MEDS ORDERED: predniSONE 20 MG TABLET PO SCH (09:00)
[2021-01-08 11:44] LABS: Calcium 9.1 mg/dL (8.6-10.3); Potassium 4.3 mEq/L (3.5-5.1)
[2021-01-08] MEDS ORDERED: Insulin LISPRO 300 UNITS/3 ML VIAL SUBQ SCH (12:00)
[2021-01-08] MEDS ORDERED: levoFLOXacin 750 MG TABLET PO SCH (17:00)
== END 2021-01-08 13:09 | disposition home or self-care (01) | DRG 291 ==
LOC: EMEROOARM 12:50 → 3ANU 12:50 → SUATTDRO 01-06 16:52
PROVIDERS: ADMIT Internal Medicine; ATTEND Student in an Organized Health Care Education/Training Program

== ENCOUNTER 2021-01-18 20:20 | Inpatient (IN) ==
[2021-01-18] MEDS ORDERED: methylPREDNISolone 125 MG/2 ML VIAL IVP ONE (21:30)
[2021-01-18] MEDS ORDERED: Ipratropium/Albuterol Neb 3 ML IH ONE (21:30)
[2021-01-18 22:09] LABS: Basophils # 0.1 K/mcL (0.0-0.2); Basophils % 0.5 %; Eosinophils # 0.2 K/mcL (0.0-0.6); Eosinophils % 1.9 %; Hematocrit 33.3 % (35.3-44.9); Hemoglobin 10.2 g/dL (11.5-15.4); Immature Granulocytes % 1.2 % (0-4); Lymphocytes # 2.1 K/mcL (0.6-4.6); Lymphocytes % 22.2 %; Mean Corpuscular HGB Conc 30.6 g/dL (31.6-35.5); Mean Corpuscular Hemoglobin 29.7 pg (28.0-33.3); Mean Corpuscular Volume 96.8 fL (83.0-100.0); Mean Platelet Volume 10.4 fL (9.4-12.4); Monocytes # 0.9 K/mcL (0.0-1.3); Monocytes % 9.7 %; Neutrophils # 6.2 K/mcL (1.6-8.9); Platelet Count 248 K/mcL (140-400); Red Blood Count 3.44 M/mcL (3.82-4.97); Red Cell Distribution Width 18.5 % (11.5-14.5); Segmented Neutrophils % 64.5 %; White Blood Count 9.6 K/mcL (4.3-11.1)
[2021-01-18 22:30] LABS: Calcium 8.7 mg/dL (8.6-10.3); Potassium 3.3 mEq/L (3.5-5.1)
[2021-01-18 22:34] LABS: Troponin I 0.04 ng/mL (< 0.04)
[2021-01-18 23:45] LABS: ABG Base Excess 2 mEq/L (-2 to 3); ABG HCO3 27 mEq/L (21-27); ABG Oxygen Saturation 97 % (95-98); ABG PCO2 45 mmHg (35-45); ABG PH 7.39 pH Units (7.32-7.45); ABG PO2 88 mmHg (85-104); ABG TCO2 29 mEq/L (20-26)
[2021-01-19] MEDS ORDERED: Naloxone 0.4 MG/ML INJ IVP PRN (02:23)
[2021-01-19] MEDS ORDERED: Melatonin 3 MG TABLET PO PRN (02:23)
[2021-01-19] MEDS ORDERED: Ondansetron 4 MG/2 ML VIAL IVP PRN (02:23)
[2021-01-19] MEDS ORDERED: *HR* Promethazine 25 MG/ML VIAL IM PRN (02:23)
[2021-01-19] MEDS ORDERED: Ipratropium/Albuterol Neb 3 ML IH PRN (02:26)
[2021-01-19] MEDS ORDERED: 0.9 % Sodium Chloride 1,000 ML IVC SCH ×2 (02:30→12:05)
[2021-01-19] MEDS: Ipratropium/Albuterol Neb 3 ML IH SCH ×6 (03:24→23:31)
[2021-01-19] MEDS ORDERED: D5% in Water 1,000 ML IVC PRN (03:53)
[2021-01-19] MEDS ORDERED: Dextrose Gel 15 GM/37.5 ML TUBE PO PRN ×2 (03:53)
[2021-01-19] MEDS ORDERED: *HR* Dextrose 50 % in Water (Vial) 50 ML VIAL IVP PRN ×2 (03:53→12:01)
[2021-01-19 04:09] LABS: Basophils % 0.2 %; Eosinophils % 0.1 %; Hematocrit 31.1 % (35.3-44.9); Hemoglobin 9.7 g/dL (11.5-15.4); Immature Granulocytes % 1.8 % (0-4); Lymphocytes # 0.9 K/mcL (0.6-4.6); Lymphocytes % 10.6 %; Mean Corpuscular HGB Conc 31.2 g/dL (31.6-35.5); Mean Corpuscular Hemoglobin 30.1 pg (28.0-33.3); Mean Corpuscular Volume 96.6 fL (83.0-100.0); Mean Platelet Volume 10.4 fL (9.4-12.4); Monocytes # 0.2 K/mcL (0.0-1.3); Monocytes % 2.3 %; Neutrophils # 7.2 K/mcL (1.6-8.9); Nucleated Red Blood Cells 0.8 /100 WBC (0); Platelet Count 203 K/mcL (140-400); Red Blood Count 3.22 M/mcL (3.82-4.97); Red Cell Distribution Width 18.4 % (11.5-14.5); White Blood Count 8.4 K/mcL (4.3-11.1)
[2021-01-19 04:16] LABS: INR 1.2
[2021-01-19 04:31] LABS: Albumin 3.2 g/dL (3.5-5.7); Albumin/Globulin Ratio 1.1 (1.1-2.2); Bilirubin,Total 0.7 mg/dL (0.3-1.0); Calcium 8.6 mg/dL (8.6-10.3); Magnesium 1.7 mg/dL (1.6-2.6); Phosphorous 4.7 mg/dL (2.7-4.5); Potassium 3.8 mEq/L (3.5-5.1); Total Protein 6.2 g/dL (6.4-8.9); Troponin I 0.03 ng/mL (< 0.04)
[2021-01-19] MEDS: levoFLOXacin 750 MG/150 ML 750 MG/150 ML BAG IVPB SCH (04:34)
[2021-01-19] MEDS ORDERED: Insulin LISPRO 300 UNITS/3 ML VIAL SUBQ SCH ×2 (07:30→21:00)
[2021-01-19] MEDS ORDERED: MethylPREDNISolone 40 MG/ML VIAL IVP SCH (08:00)
[2021-01-19] MEDS ORDERED: Insulin Human Regular 10 UNIT in 0.9 % Sodium Chloride 10 ML IV ONE ×2 (08:15→12:19)
[2021-01-19] MEDS ORDERED: Insulin DETEMIR 100 UNIT/ML X5UNITS SUBQ SCH (09:00)
[2021-01-19 10:44] LABS: Protein/Creatinine Ratio,Urine 0.25 mg/mg (0.00-0.20)
[2021-01-19 11:57] LABS: Calcium 8.3 mg/dL (8.6-10.3); Potassium 4.8 mEq/L (3.5-5.1)
[2021-01-19] MEDS ORDERED: D5% in 0.45% NACL 1,000 ML IVC PRN (12:01)
[2021-01-19] MEDS ORDERED: D5% in 0.45% NACL w KCl 20 MEQ/1,000 ML MLS IVC PRN (12:01)
[2021-01-19] MEDS ORDERED: Insulin Regular, Human 100 UNIT/ML IV ONE (12:01)
[2021-01-19] MEDS ORDERED: 0.9 % Sodium Chloride 1,000 ML IVC ONE (12:04)
[2021-01-19] MEDS ORDERED: 0.9 % Sodium Chloride w KCl 20 MEQ/1,000 ML MLS IVC SCH ×2 (12:45→19:15)
[2021-01-19 13:05] LABS: VBG HCO3 25 mEq/L (21-27); VBG PCO2 55 mmHg (41-51); VBG PH 7.27 pH Units (7.32-7.42); VBG PO2 46 mmHg (25-50)
[2021-01-19] MEDS: Gabapentin 100 MG CAPSULE PO SCH ×2 (14:17→21:08)
[2021-01-19] MEDS: amLODIPine 5 MG TABLET PO SCH (15:23)
[2021-01-19 17:13] LABS: Calcium 8.2 mg/dL (8.6-10.3); Potassium 4.3 mEq/L (3.5-5.1)
[2021-01-19] MEDS ORDERED: Insulin Human Regular 250 UNIT in 0.9 % Sodium Chloride 250 ML IV SCH ×2 (21:45→22:45)
[2021-01-19 22:46] LABS: Calcium 8.3 mg/dL (8.6-10.3); Potassium 3.8 mEq/L (3.5-5.1)
[2021-01-20] MEDS: INSULIN HUMAN REGULAR IVC SCH ×3 (02:51→06:26)
[2021-01-20] MEDS: SODIUM CHLORIDE 0.9% IVC SCH ×3 (02:51→06:26)
[2021-01-20] MEDS: Ipratropium/Albuterol Neb 3 ML IH SCH ×6 (04:09→22:57)
[2021-01-20 05:39] LABS: Basophils % 0.1 %; Eosinophils % 0.1 %; Mean Platelet Volume 10.8 fL (9.4-12.4); Nucleated Red Blood Cells 0.7 /100 WBC (0)
[2021-01-20 05:40] LABS: Hematocrit 32.4 % (35.3-44.9); Hemoglobin 9.9 g/dL (11.5-15.4); Immature Platelets 4.8 % (1.1-6.1); Lymphocytes # 1.3 K/mcL (0.6-4.6); Lymphocytes % 9.4 %; Mean Corpuscular HGB Conc 30.6 g/dL (31.6-35.5); Mean Corpuscular Hemoglobin 30.4 pg (28.0-33.3); Mean Corpuscular Volume 99.4 fL (83.0-100.0); Monocytes # 1.1 K/mcL (0.0-1.3); Monocytes % 8.1 %; Platelet Count 188 K/mcL (140-400); Red Blood Count 3.26 M/mcL (3.82-4.97); Red Cell Distribution Width 18.5 % (11.5-14.5); Segmented Neutrophils % 81.3 %; White Blood Count 13.5 K/mcL (4.3-11.1)
[2021-01-20 05:52] LABS: Potassium 3.6 mEq/L (3.5-5.1); Uric Acid 9.6 mg/dL (2.3-7.6)
[2021-01-20] MEDS: predniSONE 20 MG TABLET PO SCH (07:42)
[2021-01-20] MEDS: Gabapentin 100 MG CAPSULE PO SCH ×3 (07:43→20:35)
[2021-01-20] MEDS: amLODIPine 5 MG TABLET PO SCH (07:43)
[2021-01-20] MEDS: Insulin DETEMIR 100 UNIT/ML X5UNITS SUBQ SCH ×2 (08:31→20:35)
[2021-01-20] MEDS: Insulin LISPRO 300 UNITS/3 ML VIAL SUBQ SCH ×6 (08:39→20:33)
[2021-01-20] MEDS ORDERED: D5% in Water 1,000 ML IVC PRN (13:20)
[2021-01-20] MEDS ORDERED: *HR* Dextrose 50 % in Water (Vial) 50 ML VIAL IVP PRN (13:20)
[2021-01-20] MEDS ORDERED: Dextrose Gel 15 GM/37.5 ML TUBE PO PRN ×2 (13:20)
[2021-01-20] MEDS: *HR* Heparin 5,000 UNIT/ML VIAL SQ SCH (16:45)
[2021-01-20] MEDS: Ciprofloxacin/Dex *EAR* Susp 7.5 ML BOTTLE RIGHT EAR SCH (20:35)
[2021-01-20] MEDS: Acetaminophen 325 MG TABLET PO PRN (23:44)
[2021-01-20] MEDS: Benzonatate 100 MG CAPSULE PO PRN (23:45)
[2021-01-21 02:44] LABS: Basophils % 0.1 %; Eosinophils % 0.1 %; Hematocrit 28.9 % (35.3-44.9); Hemoglobin 8.7 g/dL (11.5-15.4); Immature Granulocytes % 0.9 % (0-4); Lymphocytes # 1.6 K/mcL (0.6-4.6); Lymphocytes % 14.4 %; Mean Corpuscular HGB Conc 30.1 g/dL (31.6-35.5); Mean Corpuscular Hemoglobin 29.6 pg (28.0-33.3); Mean Corpuscular Volume 98.3 fL (83.0-100.0); Mean Platelet Volume 10.1 fL (9.4-12.4); Monocytes # 0.9 K/mcL (0.0-1.3); Neutrophils # 8.5 K/mcL (1.6-8.9); Nucleated Red Blood Cells 0.6 /100 WBC (0); Platelet Count 213 K/mcL (140-400); Red Blood Count 2.94 M/mcL (3.82-4.97); Red Cell Distribution Width 18.8 % (11.5-14.5); Segmented Neutrophils % 76.5 %; White Blood Count 11.1 K/mcL (4.3-11.1)
[2021-01-21 03:02] LABS: Calcium 8.1 mg/dL (8.6-10.3); Potassium 4.1 mEq/L (3.5-5.1)
[2021-01-21] MEDS: levoFLOXacin 750 MG/150 ML 750 MG/150 ML BAG IVPB SCH (03:36)
[2021-01-21] MEDS: Ipratropium/Albuterol Neb 3 ML IH SCH ×6 (03:48→23:16)
[2021-01-21] MEDS: *HR* Heparin 5,000 UNIT/ML VIAL SQ SCH ×2 (05:46→17:47)
[2021-01-21] MEDS: amLODIPine 5 MG TABLET PO SCH (08:54)
[2021-01-21] MEDS: Gabapentin 100 MG CAPSULE PO SCH ×3 (08:54→20:24)
[2021-01-21] MEDS: Benzonatate 100 MG CAPSULE PO PRN (08:54)
[2021-01-21] MEDS: predniSONE 20 MG TABLET PO SCH (08:54)
[2021-01-21] MEDS: Insulin LISPRO 300 UNITS/3 ML VIAL SUBQ SCH ×7 (08:57→20:24)
[2021-01-21] MEDS: Insulin DETEMIR 100 UNIT/ML X5UNITS SUBQ SCH ×2 (09:03→20:26)
[2021-01-21] MEDS: Ciprofloxacin/Dex *EAR* Susp 7.5 ML BOTTLE RIGHT EAR SCH ×2 (09:03→20:24)
[2021-01-21] MEDS ORDERED: Furosemide 20 MG/2 ML VIAL IVP ONE (13:38)
[2021-01-21 17:29] LABS: Lambda Qnt Free Light Chains 22.05 mg/L (5.71-26.30)
[2021-01-21] MEDS: Acetaminophen 325 MG TABLET PO PRN (20:23)
[2021-01-22 02:57] LABS: Potassium 4.7 mEq/L (3.5-5.1)
[2021-01-22 03:01] LABS: Basophils % 0.1 %; Hematocrit 31.4 % (35.3-44.9); Hemoglobin 9.5 g/dL (11.5-15.4); Immature Granulocytes % 1.3 % (0-4); Lymphocytes # 0.8 K/mcL (0.6-4.6); Lymphocytes % 10.6 %; Mean Corpuscular HGB Conc 30.3 g/dL (31.6-35.5); Mean Corpuscular Volume 99.1 fL (83.0-100.0); Mean Platelet Volume 10.6 fL (9.4-12.4); Monocytes # 0.3 K/mcL (0.0-1.3); Monocytes % 3.3 %; Neutrophils # 6.7 K/mcL (1.6-8.9); Nucleated Red Blood Cells 0.3 /100 WBC (0); Platelet Count 209 K/mcL (140-400); Red Blood Count 3.17 M/mcL (3.82-4.97); Red Cell Distribution Width 18.9 % (11.5-14.5); Segmented Neutrophils % 84.7 %; White Blood Count 7.9 K/mcL (4.3-11.1)
[2021-01-22] MEDS: Ipratropium/Albuterol Neb 3 ML IH SCH ×6 (04:04→23:29)
[2021-01-22] MEDS: *HR* Heparin 5,000 UNIT/ML VIAL SQ SCH ×2 (06:02→16:45)
[2021-01-22 06:53] LABS: Kappa Qnt Free Light Chains 24.26 mg/L (3.30-19.40)
[2021-01-22] MEDS: Insulin LISPRO 300 UNITS/3 ML VIAL SUBQ SCH ×7 (08:25→20:09)
[2021-01-22] MEDS: predniSONE 20 MG TABLET PO SCH (08:26)
[2021-01-22] MEDS: Insulin DETEMIR 100 UNIT/ML X5UNITS SUBQ SCH (08:27)
[2021-01-22] MEDS: Gabapentin 100 MG CAPSULE PO SCH ×3 (08:27→20:07)
[2021-01-22] MEDS: Ciprofloxacin/Dex *EAR* Susp 7.5 ML BOTTLE RIGHT EAR SCH ×2 (08:28→20:08)
[2021-01-22] MEDS: amLODIPine 5 MG TABLET PO SCH (08:28)
[2021-01-22] MEDS ORDERED: Insulin DETEMIR 100 UNIT/ML X5UNITS SUBQ ONE (08:56)
[2021-01-22 12:27] LABS: Estimated Average Glucose 209 mg/dl; Hemoglobin A1C 8.9 %
[2021-01-22 15:57] LABS: Total Volume 24 Hour,Urine 1.27 Liters (0.60-1.60)
[2021-01-22] MEDS: Furosemide 20 MG/2 ML VIAL IVP SCH (20:08)
[2021-01-22] MEDS ORDERED: Insulin DETEMIR 100 UNIT/ML X5UNITS SUBQ SCH (21:00)
[2021-01-23] MEDS: Ipratropium/Albuterol Neb 3 ML IH SCH ×6 (03:42→23:16)
[2021-01-23] MEDS: levoFLOXacin 750 MG/150 ML 750 MG/150 ML BAG IVPB SCH (03:44)
[2021-01-23] MEDS: *HR* Heparin 5,000 UNIT/ML VIAL SQ SCH ×2 (05:28→18:08)
[2021-01-23 06:52] LABS: Calcium 9.2 mg/dL (8.6-10.3); Magnesium 2.1 mg/dL (1.6-2.6); Phosphorous 4.6 mg/dL (2.7-4.5)
[2021-01-23] MEDS: Insulin LISPRO 300 UNITS/3 ML VIAL SUBQ SCH ×8 (08:06→20:43)
[2021-01-23] MEDS: Furosemide 20 MG/2 ML VIAL IVP SCH ×2 (08:13→20:42)
[2021-01-23] MEDS: amLODIPine 5 MG TABLET PO SCH (08:13)
[2021-01-23] MEDS: Insulin DETEMIR 100 UNIT/ML X5UNITS SUBQ SCH ×2 (08:13→20:42)
[2021-01-23] MEDS: predniSONE 20 MG TABLET PO SCH (08:14)
[2021-01-23] MEDS: Gabapentin 100 MG CAPSULE PO SCH ×3 (08:14→20:44)
[2021-01-23] MEDS: Prenatal Vit/FA 1 EACH TABLET PO SCH (08:14)
[2021-01-23] MEDS: Ciprofloxacin/Dex *EAR* Susp 7.5 ML BOTTLE RIGHT EAR SCH ×2 (08:15→20:45)
[2021-01-23] MEDS: Albumin 25% 12.5gm/50mL 12.5 GM/50 ML IV.SOLN IVPB SCH (16:10)
[2021-01-23 18:47] LABS: Alpha 2 Globulin (PEP) 1.19 g/dL (0.48-1.05); Beta Globulin (PEP) 0.74 g/dL (0.48-1.10)
[2021-01-24] MEDS: Albumin 25% 12.5gm/50mL 12.5 GM/50 ML IV.SOLN IVPB SCH ×3 (00:38→17:12)
[2021-01-24] MEDS: Ipratropium/Albuterol Neb 3 ML IH SCH ×6 (03:42→23:34)
[2021-01-24 05:28] LABS: Hematocrit 29.7 % (35.3-44.9); Hemoglobin 9.2 g/dL (11.5-15.4); Mean Corpuscular Hemoglobin 29.8 pg (28.0-33.3); Mean Corpuscular Volume 96.1 fL (83.0-100.0); Mean Platelet Volume 10.3 fL (9.4-12.4); Platelet Count 208 K/mcL (140-400); Red Blood Count 3.09 M/mcL (3.82-4.97); Red Cell Distribution Width 18.2 % (11.5-14.5); White Blood Count 9.8 K/mcL (4.3-11.1)
[2021-01-24] MEDS: *HR* Heparin 5,000 UNIT/ML VIAL SQ SCH ×2 (05:31→17:12)
[2021-01-24 05:44] LABS: Calcium 9.6 mg/dL (8.6-10.3); Potassium 3.8 mEq/L (3.5-5.1)
[2021-01-24] MEDS: Prenatal Vit/FA 1 EACH TABLET PO SCH (09:24)
[2021-01-24] MEDS: Insulin LISPRO 300 UNITS/3 ML VIAL SUBQ SCH ×7 (09:24→20:56)
[2021-01-24] MEDS: Gabapentin 100 MG CAPSULE PO SCH ×3 (09:25→20:55)
[2021-01-24] MEDS: predniSONE 20 MG TABLET PO SCH (09:25)
[2021-01-24] MEDS: Insulin DETEMIR 100 UNIT/ML X5UNITS SUBQ SCH ×2 (09:26→20:56)
[2021-01-24] MEDS: Ciprofloxacin/Dex *EAR* Susp 7.5 ML BOTTLE RIGHT EAR SCH ×2 (09:26→21:05)
[2021-01-24] MEDS: Furosemide 20 MG/2 ML VIAL IVP SCH ×2 (09:26→17:12)
[2021-01-24 11:26] LABS: IFE Reflexed IFE Done; Immunoglobulin A 142 mg/dL (68-408); Immunoglobulin G 436 mg/dL (768-1632); Immunoglobulin M 105 mg/dL (35-263)
[2021-01-25] MEDS: Ipratropium/Albuterol Neb 3 ML IH SCH ×3 (03:21→11:07)
[2021-01-25 04:32] LABS: Basophils % 0.1 %; Eosinophils % 0.2 %; Hematocrit 29.5 % (35.3-44.9); Hemoglobin 9.3 g/dL (11.5-15.4); Immature Granulocytes % 1.3 % (0-4); Lymphocytes # 1.6 K/mcL (0.6-4.6); Lymphocytes % 18.3 %; Mean Corpuscular HGB Conc 31.5 g/dL (31.6-35.5); Mean Corpuscular Volume 95.2 fL (83.0-100.0); Mean Platelet Volume 10.3 fL (9.4-12.4); Monocytes # 0.4 K/mcL (0.0-1.3); Monocytes % 4.9 %; Neutrophils # 6.5 K/mcL (1.6-8.9); Nucleated Red Blood Cells 0.8 /100 WBC (0); Platelet Count 182 K/mcL (140-400); Segmented Neutrophils % 75.2 %; White Blood Count 8.7 K/mcL (4.3-11.1)
[2021-01-25 04:52] LABS: Calcium 9.8 mg/dL (8.6-10.3)
[2021-01-25] MEDS: Albumin 25% 12.5gm/50mL 12.5 GM/50 ML IV.SOLN IVPB SCH (05:11)
[2021-01-25] MEDS: *HR* Heparin 5,000 UNIT/ML VIAL SQ SCH (05:12)
[2021-01-25] MEDS: Prenatal Vit/FA 1 EACH TABLET PO SCH (08:08)
[2021-01-25] MEDS: Insulin DETEMIR 100 UNIT/ML X5UNITS SUBQ SCH (08:09)
[2021-01-25] MEDS: Gabapentin 100 MG CAPSULE PO SCH (08:09)
[2021-01-25] MEDS: Insulin LISPRO 300 UNITS/3 ML VIAL SUBQ SCH ×4 (08:09→12:20)
[2021-01-25] MEDS: Ciprofloxacin/Dex *EAR* Susp 7.5 ML BOTTLE RIGHT EAR SCH (08:10)
[2021-01-25 11:22] LABS: Adenovirus Not Detected (Not Detect); Bordetella Pertussis Not Detected (Not Detect); Chlamydophila pneumoniae Not Detected (Not Detect); Coronavirus 229E Not Detected (Not Detect); Coronavirus HKU1 Not Detected (Not Detect); Coronavirus NL63 Not Detected (Not Detect); Coronavirus OC43 Not Detected (Not Detect); Human Metapneumovirus Not Detected (Not Detect); Human Rhinovirus/Enterovirus Not Detected (Not Detect); Influenza A Subtype 2009 H1 Not Detected (Not Detect); Influenza B Not Detected (Not Detect); Mycoplasma pneumoniae Not Detected (Not Detect); Parainfluenza Virus 1 Not Detected (Not Detect); Parainfluenza Virus 2 Not Detected (Not Detect); Parainfluenza Virus 3 Not Detected (Not Detect); Parainfluenza Virus 4 Not Detected (Not Detect); Respiratory Syncytial Virus Not Detected (Not Detect); SARS-CoV-2 Not Detected (Not Detect)
[2021-01-25 12:12] VITALS: BP 147/68
[2021-01-25] MEDS ORDERED: Furosemide 40 MG TABLET PO SCH (17:00)
== END 2021-01-25 14:15 | disposition other institution (70) | DRG 682 ==
LOC: 2ANU 20:20 → EMEROOARM 20:20 → SUATTDRO 01-19 01:09 → 2ANU 01-19 02:07 → 2NNU 01-19 12:20 → SUATTDRO 01-20 17:32 → 2NNU 01-22 10:07 → CDU 01-23 10:50 → 2ANU 01-23 18:07
PROVIDERS: ADMIT Family Medicine; ATTEND General Practice

== ENCOUNTER 2021-05-13 00:46 | Inpatient (IN) ==
[2021-05-13] MEDS ORDERED: Ipratropium/Albuterol Neb 3 ML IH ONE (02:24)
[2021-05-13 02:56] LABS: VBG HCO3 24 mEq/L (21-27); VBG PCO2 52 mmHg (41-51); VBG PH 7.27 pH Units (7.32-7.42); VBG PO2 41 mmHg (25-50)
[2021-05-13 02:58] LABS: Basophils % 0.2 %; Eosinophils % 0.3 %; Hematocrit 32.3 % (35.3-44.9); Hemoglobin 9.8 g/dL (11.5-15.4); Immature Granulocytes % 0.3 % (0-4); Lymphocytes # 0.7 K/mcL (0.6-4.6); Lymphocytes % 5.1 %; Mean Corpuscular HGB Conc 30.3 g/dL (31.6-35.5); Mean Corpuscular Hemoglobin 29.3 pg (28.0-33.3); Mean Corpuscular Volume 96.4 fL (83.0-100.0); Mean Platelet Volume 10.8 fL (9.4-12.4); Monocytes # 0.6 K/mcL (0.0-1.3); Monocytes % 4.2 %; Neutrophils # 11.9 K/mcL (1.6-8.9); Platelet Count 233 K/mcL (140-400); Red Blood Count 3.35 M/mcL (3.82-4.97); Red Cell Distribution Width 18.2 % (11.5-14.5); Segmented Neutrophils % 89.9 %; White Blood Count 13.2 K/mcL (4.3-11.1)
[2021-05-13 03:25] LABS: Troponin I 1.78 ng/mL (< 0.04)
[2021-05-13 03:26] LABS: Calcium 8.8 mg/dL (8.6-10.3); Potassium 4.6 mEq/L (3.5-5.1)
[2021-05-13] MEDS ORDERED: levoFLOXacin 500 MG/100 ML 500 MG/100 ML BAG IVPB ONE (03:27)
[2021-05-13] MEDS ORDERED: *HR* Heparin 5,000 UNIT/ML VIAL IVP ONE (03:29)
[2021-05-13] MEDS ORDERED: *HR* Heparin 5,000 UNIT/ML VIAL IVP PRN ×2 (03:29)
[2021-05-13 03:42] LABS: Adenovirus Not Detected (Not Detect); Bordetella Pertussis Not Detected (Not Detect); Chlamydophila pneumoniae Not Detected (Not Detect); Coronavirus 229E Not Detected (Not Detect); Coronavirus HKU1 Not Detected (Not Detect); Coronavirus NL63 Not Detected (Not Detect); Coronavirus OC43 Not Detected (Not Detect); Human Metapneumovirus Not Detected (Not Detect); Human Rhinovirus/Enterovirus Not Detected (Not Detect); Influenza A Subtype 2009 H1 Not Detected (Not Detect); Influenza B Not Detected (Not Detect); Mycoplasma pneumoniae Not Detected (Not Detect); Parainfluenza Virus 1 Not Detected (Not Detect); Parainfluenza Virus 2 Not Detected (Not Detect); Parainfluenza Virus 3 Not Detected (Not Detect); Parainfluenza Virus 4 Not Detected (Not Detect); Respiratory Syncytial Virus Not Detected (Not Detect); SARS-CoV-2 Not Detected (Not Detect)
[2021-05-13] MEDS ORDERED: Furosemide 40 MG/4 ML VIAL IVP ONE (03:42)
[2021-05-13 04:00] LABS: Heparin anti-factor XA UFH < 0.04 IU/mL (0.30-0.70)
[2021-05-13 04:01] LABS: INR 1.3; Prothrombin Time 15.2 Seconds (9.4-12.1)
[2021-05-13] MEDS: Heparin 25,000UNIT/250ML 1/2NS 25,000 UNIT/250 ML IV.SOLN IVC SCH (04:13)
[2021-05-13 04:55] LABS: Hematocrit 30.2 % (35.3-44.9); Hemoglobin 9.3 g/dL (11.5-15.4); Mean Corpuscular HGB Conc 30.8 g/dL (31.6-35.5); Mean Corpuscular Hemoglobin 29.9 pg (28.0-33.3); Mean Corpuscular Volume 97.1 fL (83.0-100.0); Mean Platelet Volume 10.8 fL (9.4-12.4); Platelet Count 217 K/mcL (140-400); Red Blood Count 3.11 M/mcL (3.82-4.97); Red Cell Distribution Width 18.3 % (11.5-14.5); White Blood Count 13.1 K/mcL (4.3-11.1)
[2021-05-13] MEDS ORDERED: Melatonin 3 MG TABLET PO PRN (05:19)
[2021-05-13] MEDS ORDERED: *HR* HYDROcodone/Acet 5/325 mg TABLET PO PRN (05:19)
[2021-05-13] MEDS ORDERED: *HR* OxyCODONE Immed Rel 5 MG TABLET PO PRN (05:19)
[2021-05-13] MEDS ORDERED: Naloxone 0.4 MG/ML INJ IVP PRN (05:19)
[2021-05-13] MEDS ORDERED: Acetaminophen 325 MG TABLET PO PRN (05:19)
[2021-05-13] MEDS ORDERED: Ondansetron 4 MG/2 ML VIAL IVP PRN (05:19)
[2021-05-13] MEDS ORDERED: D5% in Water 1,000 ML IVC PRN (05:22)
[2021-05-13] MEDS ORDERED: *HR* Dextrose 50 % in Water (Vial) 50 ML VIAL IVP PRN (05:22)
[2021-05-13] MEDS ORDERED: Dextrose Gel 15 GM/37.5 ML TUBE PO PRN ×2 (05:22)
[2021-05-13] MEDS ORDERED: Ipratropium/Albuterol Neb 3 ML IH PRN (05:35)
[2021-05-13] MEDS ORDERED: Perflutren Lipid Microsphere 1.3 ML in 0.9 % Sodium Chloride 8.7 ML IVP PRN (05:43)
[2021-05-13] MEDS ORDERED: Insulin LISPRO 300 UNITS/3 ML VIAL SUBQ SCH (06:00)
[2021-05-13] MEDS: Ipratropium/Albuterol Neb 3 ML IH SCH ×2 (07:34→11:52)
[2021-05-13] MEDS ORDERED: MethylPREDNISolone 40 MG/ML VIAL IVP SCH (08:00)
[2021-05-13] MEDS ORDERED: Furosemide 40 MG/4 ML VIAL IVP SCH (08:00)
[2021-05-13] MEDS: amLODIPine 5 MG TABLET PO SCH (08:34)
[2021-05-13] MEDS: Insulin LISPRO 300 UNITS/3 ML VIAL SUBQ SCH ×3 (12:55→20:52)
[2021-05-13] MEDS ORDERED: Ipratropium Neb 0.5 MG NEBULIZER IH PRN (13:50)
[2021-05-13 15:05] LABS: Magnesium 1.5 mg/dL (1.6-2.6)
[2021-05-13 15:22] LABS: Troponin I 1.91 ng/mL (< 0.04)
[2021-05-13] MEDS ORDERED: Levalbuterol Neb 0.63 MG/3 ML ONE (15:30)
[2021-05-13] MEDS: Levalbuterol Neb 0.63 MG/3 ML IH SCH ×2 (15:40→22:06)
[2021-05-13] MEDS: Gabapentin 100 MG CAPSULE PO SCH ×2 (16:47→20:44)
[2021-05-13] MEDS: Insulin DETEMIR 100 UNIT/ML X5UNITS SUBQ SCH ×2 (16:48→20:54)
[2021-05-13] MEDS: MethylPREDNISolone 40 MG/ML VIAL IVP SCH (20:55)
[2021-05-13] MEDS ORDERED: Insulin LISPRO 300 UNITS/3 ML VIAL SUBQ ONE (22:24)
[2021-05-14] MEDS: Levalbuterol Neb 0.63 MG/3 ML IH SCH ×4 (03:45→21:34)
[2021-05-14] MEDS: Heparin 25,000UNIT/250ML 1/2NS 25,000 UNIT/250 ML IV.SOLN IVC SCH (05:38)
[2021-05-14 07:53] LABS: Hematocrit 30.3 % (35.3-44.9); Hemoglobin 9.5 g/dL (11.5-15.4); Immature Granulocytes % 0.2 % (0-4); Lymphocytes # 0.7 K/mcL (0.6-4.6); Lymphocytes % 6.6 %; Mean Corpuscular HGB Conc 31.4 g/dL (31.6-35.5); Mean Corpuscular Hemoglobin 29.5 pg (28.0-33.3); Mean Corpuscular Volume 94.1 fL (83.0-100.0); Monocytes # 0.4 K/mcL (0.0-1.3); Monocytes % 4.4 %; Neutrophils # 8.9 K/mcL (1.6-8.9); Platelet Count 270 K/mcL (140-400); Red Blood Count 3.22 M/mcL (3.82-4.97); Red Cell Distribution Width 17.8 % (11.5-14.5); Segmented Neutrophils % 88.8 %
[2021-05-14 07:58] LABS: Calcium 8.8 mg/dL (8.6-10.3); Chol/HDL Ratio 3.9 (0-4.9); Magnesium 2.6 mg/dL (1.6-2.6); Phosphorous 4.3 mg/dL (2.7-4.5); Potassium 5.2 mEq/L (3.5-5.1)
[2021-05-14 08:01] LABS: INR 1.4
[2021-05-14] MEDS: Insulin LISPRO 300 UNITS/3 ML VIAL SUBQ SCH ×6 (08:42→21:00)
[2021-05-14] MEDS: Insulin DETEMIR 100 UNIT/ML X5UNITS SUBQ SCH ×2 (08:47→21:01)
[2021-05-14] MEDS: Gabapentin 100 MG CAPSULE PO SCH ×3 (08:47→21:01)
[2021-05-14] MEDS: amLODIPine 5 MG TABLET PO SCH (08:47)
[2021-05-14] MEDS: MethylPREDNISolone 40 MG/ML VIAL IVP SCH (08:48)
[2021-05-14] MEDS ORDERED: levoFLOXacin 750 MG/150 ML 750 MG/150 ML BAG IVPB SCH ×2 (09:00)
[2021-05-14] MEDS ORDERED: Insulin DETEMIR 100 UNIT/ML X5UNITS SUBQ SCH (09:00)
[2021-05-14] MEDS ORDERED: Furosemide 40 MG/4 ML VIAL IVP SCH (09:00)
[2021-05-14] MEDS ORDERED: Insulin DETEMIR 100 UNIT/ML X5UNITS SUBQ ONE (10:03)
[2021-05-14 16:07] LABS: Uric Acid 10.1 mg/dL (2.3-7.6)
[2021-05-14] MEDS: Furosemide 40 MG TABLET PO SCH (17:21)
[2021-05-14] MEDS: *HR* Heparin 5,000 UNIT/ML VIAL SQ SCH (17:21)
[2021-05-14 22:37] LABS: Bacteria,Urine Few per hpf (None-Few); Hyaline Casts,Urine Few per lpf (None Seen); Mucus,Urine Few per lpf (None-Few); RBC,Urine 0-3 per hpf (0-3); Squamous Epithelial Cell,Urine Few per hpf (None-Few); WBC,Urine 0-3 per hpf (0-3)
[2021-05-14 22:47] LABS: Bilirubin,Urine Negative (Negative); Blood,Urine Negative (Negative); Clarity,Urine Clear (Clear); Color,Urine Light-Yellow (Yellow); Glucose,Urine (UA) Normal (Normal); Ketones,Urine Negative (Negative); Leukocyte Esterase,Urine Negative (Negative); Nitrite,Urine Negative (Negative); PH,Urine 5.5 pH Units (5.0-8.0); Protein,Urine Trace mg/dL (Neg-Trace); Specific Gravity,Urine 1.015 (1.010-1.025); Urobilinogen,Urine Normal (Normal)
[2021-05-14 22:48] LABS: Creatinine,Urine 72 mg/dL
[2021-05-15] MEDS: Levalbuterol Neb 0.63 MG/3 ML IH SCH ×4 (04:22→22:07)
[2021-05-15] MEDS: *HR* Heparin 5,000 UNIT/ML VIAL SQ SCH ×2 (05:43→18:09)
[2021-05-15 07:50] LABS: Hematocrit 30.4 % (35.3-44.9); Hemoglobin 9.5 g/dL (11.5-15.4); Immature Granulocytes % 0.3 % (0-4); Lymphocytes # 0.8 K/mcL (0.6-4.6); Lymphocytes % 7.3 %; Mean Corpuscular HGB Conc 31.3 g/dL (31.6-35.5); Mean Corpuscular Hemoglobin 29.5 pg (28.0-33.3); Mean Corpuscular Volume 94.4 fL (83.0-100.0); Mean Platelet Volume 10.8 fL (9.4-12.4); Monocytes # 0.6 K/mcL (0.0-1.3); Monocytes % 5.6 %; Neutrophils # 9.5 K/mcL (1.6-8.9); Nucleated Red Blood Cells 0.4 /100 WBC (0); Platelet Count 311 K/mcL (140-400); Red Blood Count 3.22 M/mcL (3.82-4.97); Red Cell Distribution Width 17.5 % (11.5-14.5); Segmented Neutrophils % 86.8 %; White Blood Count 10.9 K/mcL (4.3-11.1)
[2021-05-15 08:17] LABS: Potassium 4.8 mEq/L (3.5-5.1)
[2021-05-15] MEDS: Insulin LISPRO 300 UNITS/3 ML VIAL SUBQ SCH ×7 (08:43→21:05)
[2021-05-15] MEDS: amLODIPine 5 MG TABLET PO SCH (08:44)
[2021-05-15] MEDS: predniSONE 20 MG TABLET PO SCH (08:44)
[2021-05-15] MEDS: Furosemide 40 MG TABLET PO SCH (08:44)
[2021-05-15] MEDS: Insulin DETEMIR 100 UNIT/ML X5UNITS SUBQ SCH ×2 (08:45→21:04)
[2021-05-15] MEDS: Gabapentin 100 MG CAPSULE PO SCH ×2 (08:45→14:59)
[2021-05-15] MEDS: Albumin 25% 25gram/100mL 25 GM/100 ML IV.SOLN IVPB SCH ×2 (12:58→21:05)
[2021-05-15] MEDS: Benzonatate 100 MG CAPSULE PO PRN (16:37)
[2021-05-16] MEDS: Levalbuterol Neb 0.63 MG/3 ML IH SCH ×3 (04:03→14:49)
[2021-05-16 05:38] LABS: Hematocrit 28.6 % (35.3-44.9); Hemoglobin 8.8 g/dL (11.5-15.4); Mean Corpuscular HGB Conc 30.8 g/dL (31.6-35.5); Mean Corpuscular Hemoglobin 28.9 pg (28.0-33.3); Mean Corpuscular Volume 94.1 fL (83.0-100.0); Mean Platelet Volume 10.9 fL (9.4-12.4); Platelet Count 275 K/mcL (140-400); Red Blood Count 3.04 M/mcL (3.82-4.97); Red Cell Distribution Width 17.5 % (11.5-14.5)
[2021-05-16 05:55] LABS: Calcium 8.8 mg/dL (8.6-10.3); Potassium 4.4 mEq/L (3.5-5.1)
[2021-05-16] MEDS: Albumin 25% 25gram/100mL 25 GM/100 ML IV.SOLN IVPB SCH (06:19)
[2021-05-16] MEDS: *HR* Heparin 5,000 UNIT/ML VIAL SQ SCH (06:20)
[2021-05-16] MEDS: amLODIPine 5 MG TABLET PO SCH (08:15)
[2021-05-16] MEDS: Benzonatate 100 MG CAPSULE PO PRN (08:15)
[2021-05-16] MEDS: predniSONE 20 MG TABLET PO SCH (08:16)
[2021-05-16] MEDS: Insulin DETEMIR 100 UNIT/ML X5UNITS SUBQ SCH (08:16)
[2021-05-16] MEDS: Insulin LISPRO 300 UNITS/3 ML VIAL SUBQ SCH ×6 (08:17→16:23)
[2021-05-16] MEDS ORDERED: levoFLOXacin 750 MG TABLET PO SCH (09:00)
[2021-05-16] MEDS ORDERED: Gabapentin 100 MG CAPSULE PO SCH (09:00)
[2021-05-16 15:25] VITALS: TEMP 97.4; O2SAT 99
[2021-05-16 15:46] VITALS: BP 144/75; PULSE 59
[2021-05-16] MEDS: Furosemide 40 MG TABLET PO SCH (16:22)
== END 2021-05-16 18:03 | disposition home health service (06) | DRG 280 ==
LOC: EMEROOARM 00:46 → 3ANU 00:46 → SUATTDRO 04:31 → 3ANU 05:05
PROVIDERS: ADMIT Family Medicine; ATTEND General Practice

== ENCOUNTER 2021-08-15 19:33 | Observation (INO) ==
[2021-08-15] MEDS ORDERED: Ipratropium/Albuterol Neb 3 ML IH ONE (20:05)
[2021-08-15] MEDS ORDERED: methylPREDNISolone 125 MG/2 ML VIAL IVP ONE (20:05)
[2021-08-15] MEDS ORDERED: 0.9 % Sodium Chloride 1,000 ML IVC ONE (20:05)
[2021-08-15 20:40] LABS: Basophils % 0.3 %; Eosinophils # 0.3 K/mcL (0.0-0.6); Eosinophils % 2.5 %; Hematocrit 34.7 % (35.3-44.9); Hemoglobin 10.7 g/dL (11.5-15.4); Immature Granulocytes % 0.3 % (0-4); Lymphocytes # 2.5 K/mcL (0.6-4.6); Lymphocytes % 20.4 %; Mean Corpuscular HGB Conc 30.8 g/dL (31.6-35.5); Mean Corpuscular Hemoglobin 28.2 pg (28.0-33.3); Mean Corpuscular Volume 91.6 fL (83.0-100.0); Mean Platelet Volume 10.4 fL (9.4-12.4); Monocytes # 0.8 K/mcL (0.0-1.3); Monocytes % 6.8 %; Neutrophils # 8.5 K/mcL (1.6-8.9); Platelet Count 296 K/mcL (140-400); Red Blood Count 3.79 M/mcL (3.82-4.97); Red Cell Distribution Width 16.4 % (11.5-14.5); Segmented Neutrophils % 69.7 %; White Blood Count 12.2 K/mcL (4.3-11.1)
[2021-08-15 21:16] LABS: Alanine Aminotransferase 17 Units/L (7-52); Albumin 3.2 g/dL (3.5-5.7); Alkaline Phosphatase 120 Units/L (34-104); Aspartate Amino Transferase 16 Units/L (13-39); BUN/Creatinine Ratio 10 (6-26); Bilirubin,Direct 0.4 mg/dL (0.0-0.2); Bilirubin,Indirect 0.5 mg/dL (0.0-1.0); Bilirubin,Total 0.9 mg/dL (0.3-1.0); Blood Urea Nitrogen 10 mg/dL (8-23); Calcium 8.8 mg/dL (8.6-10.3); Carbon Dioxide 30 mEq/L (23-29); Chloride 96 mEq/L (98-107); Globulin 3.3 g/dL (2.4-3.5); Glucose 232 mg/dL (70-105); Osmolality,Calculated 282 (280-300); Potassium 4.6 mEq/L (3.5-5.1); Sodium 133 mEq/L (136-145); Total Protein 6.5 g/dL (6.4-8.9); Troponin I 0.06 ng/mL (< 0.04); eGFR For African Americans > 60 (> 60); eGFR For Non-African Americans 53 (> 60)
[2021-08-15] MEDS ORDERED: *HR* Heparin 5,000 UNIT/ML VIAL IVP PRN ×2 (21:33)
[2021-08-15] MEDS ORDERED: Aspirin 325 MG TABLET PO ONE (21:33)
[2021-08-15] MEDS ORDERED: *HR* Heparin 5,000 UNIT/ML VIAL IVP ONE (21:33)
[2021-08-15 21:39] LABS: Bacteria,Urine Moderate per hpf (None-Few); Bilirubin,Urine Negative (Negative); Blood,Urine Negative (Negative); Clarity,Urine Clear (Clear); Color,Urine Yellow (Yellow); Glucose,Urine (UA) 50 mg/dL (Normal); Ketones,Urine Negative (Negative); Leukocyte Esterase,Urine Small (Negative); Mucus,Urine Few per lpf (None-Few); Nitrite,Urine Negative (Negative); PH,Urine 6.5 pH Units (5.0-8.0); Protein,Urine 100 mg/dL (Neg-Trace); Specific Gravity,Urine 1.019 (1.010-1.025); Squamous Epithelial Cell,Urine Few per hpf (None-Few); WBC,Urine 50-100 per hpf (0-3)
[2021-08-15] MEDS ORDERED: Heparin 25,000UNIT/250ML 1/2NS 25,000 UNIT/250 ML IV.SOLN IVC SCH (21:45)
[2021-08-15 21:53] LABS: Influenza A PCR Negative (Negative); Influenza B PCR Negative (Negative); Resp. Syncytial Virus PCR Negative (Negative)
[2021-08-15 21:54] LABS: SARS-CoV-2 by PCR (In House) Negative (Negative)
[2021-08-15 21:57] LABS: Hematocrit 33.8 % (35.3-44.9); Hemoglobin 10.6 g/dL (11.5-15.4); Mean Corpuscular HGB Conc 31.4 g/dL (31.6-35.5); Mean Corpuscular Hemoglobin 28.6 pg (28.0-33.3); Mean Corpuscular Volume 91.4 fL (83.0-100.0); Mean Platelet Volume 10.4 fL (9.4-12.4); Platelet Count 296 K/mcL (140-400); Red Cell Distribution Width 16.3 % (11.5-14.5); White Blood Count 12.3 K/mcL (4.3-11.1)
[2021-08-15 22:04] LABS: Heparin anti-factor XA UFH < 0.04 IU/mL (0.30-0.70)
[2021-08-15 22:05] LABS: INR 1.2; Prothrombin Time 12.9 Seconds (9.4-12.1)
[2021-08-15] MEDS ORDERED: Acetaminophen 325 MG TABLET PO PRN (22:16)
[2021-08-15] MEDS ORDERED: *HR* HYDROcodone/Acet 5/325 mg TABLET PO PRN (22:16)
[2021-08-15] MEDS ORDERED: Naloxone 0.4 MG/ML INJ IVP PRN (22:16)
[2021-08-15] MEDS ORDERED: Melatonin 3 MG TABLET PO PRN (22:16)
[2021-08-16] MEDS: Ipratropium/Albuterol Neb 3 ML IH SCH ×4 (04:17→20:25)
[2021-08-16] MEDS ORDERED: *HR* Dextrose 50 % in Water (Syg) 50 ML SYRINGE IVP PRN (05:37)
[2021-08-16] MEDS ORDERED: D5% in Water 1,000 ML IVC PRN (05:37)
[2021-08-16] MEDS ORDERED: Dextrose Gel 15 GM/37.5 ML TUBE PO PRN ×2 (05:37)
[2021-08-16] MEDS ORDERED: Regadenoson 0.4 MG/5 ML SYRINGE IVP ONE (06:43)
[2021-08-16 07:07] LABS: Basophils % 0.1 %; Hematocrit 34.8 % (35.3-44.9); Immature Granulocytes % 0.3 % (0-4); Lymphocytes # 0.9 K/mcL (0.6-4.6); Lymphocytes % 9.8 %; Mean Corpuscular HGB Conc 31.6 g/dL (31.6-35.5); Mean Corpuscular Volume 91.8 fL (83.0-100.0); Mean Platelet Volume 10.5 fL (9.4-12.4); Monocytes # 0.2 K/mcL (0.0-1.3); Monocytes % 1.6 %; Platelet Count 262 K/mcL (140-400); Red Blood Count 3.79 M/mcL (3.82-4.97); Red Cell Distribution Width 16.2 % (11.5-14.5); Segmented Neutrophils % 88.2 %; White Blood Count 9.1 K/mcL (4.3-11.1)
[2021-08-16 07:16] LABS: INR 1.2; Prothrombin Time 13.7 Seconds (9.4-12.1)
[2021-08-16 07:27] LABS: Iron 21 mcg/dL (50-170)
[2021-08-16] MEDS ORDERED: Insulin LISPRO 300 UNITS/3 ML VIAL SUBQ SCH (07:30)
[2021-08-16 07:31] LABS: Albumin 3.2 g/dL (3.5-5.7); Albumin/Globulin Ratio 0.9 (1.1-2.2); Globulin 3.4 g/dL (2.4-3.5); Magnesium 1.7 mg/dL (1.6-2.6); Phosphorous 3.9 mg/dL (2.7-4.5); Potassium 5.6 mEq/L (3.5-5.1); Total Protein 6.6 g/dL (6.4-8.9)
[2021-08-16 07:44] LABS: Ferritin 90 ng/mL (10-120)
[2021-08-16 07:49] LABS: Folate 17.3 ng/mL (3.0-16.0)
[2021-08-16 07:51] LABS: Estimated Average Glucose 212 mg/dl
[2021-08-16] MEDS ORDERED: Furosemide 20 MG/2 ML VIAL IVP SCH ×2 (08:00→09:00)
[2021-08-16] MEDS ORDERED: predniSONE 20 MG TABLET PO SCH (09:00)
[2021-08-16] MEDS ORDERED: Insulin DETEMIR 100 UNIT/ML X5UNITS SUBQ SCH ×2 (09:00)
[2021-08-16] MEDS ORDERED: levoFLOXacin 750 MG TABLET PO SCH (09:00)
[2021-08-16] MEDS: Insulin LISPRO 300 UNITS/3 ML VIAL SUBQ SCH ×4 (09:01→21:10)
[2021-08-16] MEDS: Insulin DETEMIR 100 UNIT/ML X5UNITS SUBQ SCH (09:06)
[2021-08-16] MEDS: Aspirin 81 MG TAB.CHEW PO SCH (09:07)
[2021-08-16] MEDS: Chlorhexidine Rinse 15 ML MOUTHWASH MM SCH ×2 (09:09→21:09)
[2021-08-16] MEDS: Lactobacillus 1 EACH CAP.SPRINK PO SCH ×2 (09:09→21:10)
[2021-08-16] MEDS ORDERED: Insulin Human Regular 10 UNIT in 0.9 % Sodium Chloride 10 ML IV ONE (10:25)
[2021-08-16] MEDS: Budesonide/Formoterol 160/4.5 1 PUFF INH IH SCH ×2 (10:27→20:07)
[2021-08-16] MEDS: Furosemide 40 MG TABLET PO SCH (12:33)
[2021-08-16] MEDS: *HR* Heparin 5,000 UNIT/ML VIAL SQ SCH ×2 (15:27→21:10)
[2021-08-17] MEDS: Ipratropium/Albuterol Neb 3 ML IH SCH ×4 (03:02→20:20)
[2021-08-17] MEDS: *HR* Heparin 5,000 UNIT/ML VIAL SQ SCH ×3 (05:56→21:59)
[2021-08-17] MEDS ORDERED: Regadenoson 0.4 MG/5 ML SYRINGE IVP ONE (07:29)
[2021-08-17] MEDS: Insulin DETEMIR 100 UNIT/ML X5UNITS SUBQ SCH (07:32)
[2021-08-17] MEDS: Insulin LISPRO 300 UNITS/3 ML VIAL SUBQ SCH ×4 (07:33→19:45)
[2021-08-17] MEDS: Lactobacillus 1 EACH CAP.SPRINK PO SCH ×2 (07:35→19:45)
[2021-08-17] MEDS: Aspirin 81 MG TAB.CHEW PO SCH (07:35)
[2021-08-17] MEDS: Chlorhexidine Rinse 15 ML MOUTHWASH MM SCH ×2 (07:38→19:45)
[2021-08-17] MEDS: Budesonide/Formoterol 160/4.5 1 PUFF INH IH SCH ×2 (10:18→20:19)
[2021-08-17 10:35] LABS: Hematocrit 31.2 % (35.3-44.9); Hemoglobin 9.7 g/dL (11.5-15.4); Mean Corpuscular HGB Conc 31.1 g/dL (31.6-35.5); Mean Corpuscular Hemoglobin 28.3 pg (28.0-33.3); Mean Platelet Volume 10.6 fL (9.4-12.4); Platelet Count 335 K/mcL (140-400); Red Blood Count 3.43 M/mcL (3.82-4.97); Red Cell Distribution Width 16.3 % (11.5-14.5)
[2021-08-17 10:55] LABS: Calcium 9.2 mg/dL (8.6-10.3); Potassium 3.8 mEq/L (3.5-5.1)
[2021-08-17] MEDS ORDERED: Furosemide 40 MG TABLET PO PRN (11:27)
[2021-08-17] MEDS: Isosorbide MONOnitrate (24 HR) 30 MG TAB.ER.24H PO SCH (12:00)
[2021-08-17] MEDS: Furosemide 40 MG TABLET PO SCH (12:00)
[2021-08-17] MEDS: Gabapentin 100 MG CAPSULE PO SCH ×2 (17:29→21:59)
[2021-08-17] MEDS: predniSONE 20 MG TABLET PO SCH (17:29)
[2021-08-18] MEDS: Ipratropium/Albuterol Neb 3 ML IH SCH ×2 (04:14→09:44)
[2021-08-18] MEDS: *HR* Heparin 5,000 UNIT/ML VIAL SQ SCH (05:48)
[2021-08-18] MEDS: Insulin DETEMIR 100 UNIT/ML X5UNITS SUBQ SCH (09:03)
[2021-08-18] MEDS: Gabapentin 100 MG CAPSULE PO SCH (09:04)
[2021-08-18] MEDS: Isosorbide MONOnitrate (24 HR) 30 MG TAB.ER.24H PO SCH (09:04)
[2021-08-18] MEDS: Aspirin 81 MG TAB.CHEW PO SCH (09:04)
[2021-08-18] MEDS: Lactobacillus 1 EACH CAP.SPRINK PO SCH (09:04)
[2021-08-18] MEDS: predniSONE 20 MG TABLET PO SCH (09:04)
[2021-08-18] MEDS: Insulin LISPRO 300 UNITS/3 ML VIAL SUBQ SCH ×2 (09:06→12:08)
[2021-08-18] MEDS: Chlorhexidine Rinse 15 ML MOUTHWASH MM SCH (09:15)
[2021-08-18] MEDS: Furosemide 40 MG TABLET PO SCH (09:16)
[2021-08-18] MEDS: Budesonide/Formoterol 160/4.5 1 PUFF INH IH SCH (09:43)
[2021-08-18] MEDS ORDERED: levoFLOXacin 750 MG TABLET PO SCH (11:45)
[2021-08-18 13:54] VITALS: BP 149/66; PULSE 77; TEMP 98.4; O2SAT 97
== END 2021-08-18 14:18 | disposition home or self-care (01) ==
LOC: SUATTDRO → EMEROOARM 19:33 → 3BNU 19:33 → SUATTDRO 22:14 → 3BNU 22:46
PROVIDERS: ADMIT Internal Medicine; ATTEND Registered Nurse

== ENCOUNTER 2022-04-22 22:45 | Inpatient (IN) ==
[2022-04-23] MEDS ORDERED: Naloxone 0.4 MG/ML INJ IVP PRN (03:29)
[2022-04-23] MEDS ORDERED: Dextrose Gel 15 GM/37.5 ML TUBE PO PRN ×2 (03:29)
[2022-04-23] MEDS ORDERED: D5% in Water 1,000 ML IVC PRN (03:29)
[2022-04-23] MEDS ORDERED: *HR* Dextrose 50 % in Water (Syg) 50 ML SYRINGE IVP PRN (03:29)
[2022-04-23] MEDS ORDERED: *HR* Heparin 5,000 UNIT/ML VIAL IVP PRN ×2 (03:52)
[2022-04-23] MEDS ORDERED: *HR* Heparin 5,000 UNIT/ML VIAL IVP ONE (03:52)
[2022-04-23] MEDS: Heparin 25,000UNIT/250ML 1/2NS 25,000 UNIT/250 ML IV.SOLN IVC SCH (04:25)
[2022-04-23 05:23] LABS: Basophils % 0.2 %; Eosinophils # 0.6 K/mcL (0.0-0.6); Eosinophils % 5.2 %; Hematocrit 34.6 % (35.3-44.9); Hemoglobin 10.9 g/dL (11.5-15.4); Immature Granulocytes % 0.3 % (0-4); Lymphocytes # 3.3 K/mcL (0.6-4.6); Lymphocytes % 29.1 %; Mean Corpuscular HGB Conc 31.5 g/dL (31.6-35.5); Mean Corpuscular Hemoglobin 27.9 pg (28.0-33.3); Mean Corpuscular Volume 88.7 fL (83.0-100.0); Mean Platelet Volume 10.7 fL (9.4-12.4); Monocytes # 0.6 K/mcL (0.0-1.3); Monocytes % 5.6 %; Neutrophils # 6.7 K/mcL (1.6-8.9); Platelet Count 238 K/mcL (140-400); Red Cell Distribution Width 15.5 % (11.5-14.5); Segmented Neutrophils % 59.6 %; White Blood Count 11.2 K/mcL (4.3-11.1)
[2022-04-23 05:26] LABS: INR 1.1; Prothrombin Time 12.5 Seconds (9.4-12.1)
[2022-04-23 05:42] LABS: % Iron Saturation 13 % (15-50); Iron 39 mcg/dL (50-170); Transferrin 218 mg/dL (203-362)
[2022-04-23 05:48] LABS: Heparin anti-factor XA UFH 0.78 IU/mL (0.30-0.70)
[2022-04-23 05:53] LABS: Alanine Aminotransferase 12 Units/L (7-52); Albumin 3.1 g/dL (3.5-5.7); Albumin/Globulin Ratio 1.1 (1.1-2.2); Alkaline Phosphatase 110 Units/L (34-104); Aspartate Amino Transferase 14 Units/L (13-39); BUN/Creatinine Ratio 25 (6-26); Bilirubin,Total 0.4 mg/dL (0.3-1.0); Blood Urea Nitrogen 26 mg/dL (8-23); Calcium 8.4 mg/dL (8.6-10.3); Carbon Dioxide 31 mEq/L (23-29); Chloride 100 mEq/L (98-107); Globulin 2.9 g/dL (2.4-3.5); Glucose 233 mg/dL (70-105); Magnesium 1.8 mg/dL (1.6-2.6); Osmolality,Calculated 300 (280-300); Potassium 3.2 mEq/L (3.5-5.1); Sodium 139 mEq/L (136-145); eGFR For African Americans > 60 (> 60); eGFR For Non-African Americans 50 (> 60)
[2022-04-23 06:01] LABS: Ferritin 21 ng/mL (10-120)
[2022-04-23] MEDS: Insulin LISPRO 300 UNITS/3 ML VIAL SUBQ SCH ×4 (07:31→20:32)
[2022-04-23] MEDS: Aspirin 81 MG TAB.CHEW PO SCH (07:31)
[2022-04-23] MEDS ORDERED: Iopamidol - 370 500 ML MLS IVP ONE (09:51)
[2022-04-23] MEDS: niCARdipine 20 MG/200 ML MLS IVC SCH ×5 (16:20→23:48)
[2022-04-23 17:02] LABS: Estimated Average Glucose 229 mg/dl; Hemoglobin A1C 9.6 %
[2022-04-23] MEDS ORDERED: Insulin LISPRO 300 UNITS/3 ML VIAL SUBQ SCH (21:00)
[2022-04-23] MEDS ORDERED: Insulin DETEMIR 100 UNIT/ML X5UNITS SUBQ SCH (21:00)
[2022-04-23] MEDS ORDERED: Ondansetron 4 MG/2 ML VIAL IVP ONE (21:19)
[2022-04-24] MEDS: niCARdipine 20 MG/200 ML MLS IVC SCH ×9 (01:49→18:14)
[2022-04-24] MEDS: Heparin 25,000UNIT/250ML 1/2NS 25,000 UNIT/250 ML IV.SOLN IVC SCH (04:52)
[2022-04-24] MEDS ORDERED: Ondansetron 4 MG/2 ML VIAL IVP PRN (06:51)
[2022-04-24] MEDS: Insulin LISPRO 300 UNITS/3 ML VIAL SUBQ SCH ×4 (07:45→21:18)
[2022-04-24] MEDS: Aspirin 81 MG TAB.CHEW PO SCH (07:46)
[2022-04-24] MEDS ORDERED: carvediloL 6.25 MG TABLET PO SCH ×2 (08:00→17:00)
[2022-04-24 08:27] LABS: Basophils % 0.2 %; Eosinophils % 7.3 %; Hematocrit 30.7 % (35.3-44.9); Hemoglobin 9.4 g/dL (11.5-15.4); Immature Granulocytes % 0.3 % (0-4); Lymphocytes # 3.8 K/mcL (0.6-4.6); Lymphocytes % 27.9 %; Mean Corpuscular HGB Conc 30.6 g/dL (31.6-35.5); Mean Corpuscular Hemoglobin 27.3 pg (28.0-33.3); Mean Corpuscular Volume 89.2 fL (83.0-100.0); Monocytes # 0.8 K/mcL (0.0-1.3); Monocytes % 5.9 %; Platelet Count 251 K/mcL (140-400); Red Blood Count 3.44 M/mcL (3.82-4.97); Red Cell Distribution Width 15.6 % (11.5-14.5); Segmented Neutrophils % 58.4 %; White Blood Count 13.6 K/mcL (4.3-11.1)
[2022-04-24 08:32] LABS: Calcium 8.2 mg/dL (8.6-10.3); Potassium 3.7 mEq/L (3.5-5.1)
[2022-04-24] MEDS ORDERED: lisinopriL 5 MG TABLET PO SCH (09:00)
[2022-04-24] MEDS ORDERED: Ringers Solution, Lactated 1,000 ML IVC SCH (10:30)
[2022-04-24] MEDS: Isosorbide MONOnitrate (24 HR) 60 MG TAB.ER.24H PO SCH (10:41)
[2022-04-24] MEDS: NIFEdipine XL (24 HR) 60 MG TAB.ER.24 PO SCH (10:41)
[2022-04-24] MEDS ORDERED: carvediloL 6.25 MG TABLET PO ONE (13:01)
[2022-04-24] MEDS: Insulin DETEMIR 100 UNIT/ML X5UNITS SUBQ SCH (21:16)
[2022-04-24] MEDS: carvediloL 6.25 MG TABLET PO SCH (21:16)
[2022-04-25 03:37] LABS: Basophils % 0.2 %; Eosinophils # 0.7 K/mcL (0.0-0.6); Hematocrit 29.5 % (35.3-44.9); Hemoglobin 8.8 g/dL (11.5-15.4); Immature Granulocytes % 0.2 % (0-4); Lymphocytes # 2.4 K/mcL (0.6-4.6); Lymphocytes % 25.7 %; Mean Corpuscular HGB Conc 29.8 g/dL (31.6-35.5); Mean Corpuscular Hemoglobin 27.2 pg (28.0-33.3); Mean Platelet Volume 11.1 fL (9.4-12.4); Monocytes # 0.6 K/mcL (0.0-1.3); Monocytes % 6.6 %; Neutrophils # 5.5 K/mcL (1.6-8.9); Platelet Count 197 K/mcL (140-400); Red Blood Count 3.24 M/mcL (3.82-4.97); Red Cell Distribution Width 15.3 % (11.5-14.5); Segmented Neutrophils % 59.3 %; White Blood Count 9.2 K/mcL (4.3-11.1)
[2022-04-25 03:40] LABS: Calcium 7.7 mg/dL (8.6-10.3)
[2022-04-25] MEDS: niCARdipine 20 MG/200 ML MLS IVC SCH (05:57)
[2022-04-25 07:52] LABS: Sodium, Urine 45.1 mEq/L
[2022-04-25] MEDS: Insulin LISPRO 300 UNITS/3 ML VIAL SUBQ SCH ×3 (08:17→21:03)
[2022-04-25] MEDS: Aspirin 81 MG TAB.CHEW PO SCH (08:18)
[2022-04-25] MEDS: Isosorbide MONOnitrate (24 HR) 60 MG TAB.ER.24H PO SCH (08:18)
[2022-04-25] MEDS: NIFEdipine XL (24 HR) 60 MG TAB.ER.24 PO SCH (08:19)
[2022-04-25] MEDS: carvediloL 6.25 MG TABLET PO SCH ×2 (08:19→20:53)
[2022-04-25] MEDS: Insulin DETEMIR 100 UNIT/ML X5UNITS SUBQ SCH ×2 (09:48→21:05)
[2022-04-25 10:06] LABS: Folate > 22.3 ng/mL (3.0-16.0); Vitamin B12 175 pg/mL (250-1100)
[2022-04-25] MEDS: Cyanocobalamin (B-12) 1,000 MCG/ML VIAL SQ SCH (15:33)
[2022-04-25] MEDS: *HR* Heparin 5,000 UNIT/ML VIAL SQ SCH (20:59)
[2022-04-26] MEDS: *HR* Heparin 5,000 UNIT/ML VIAL SQ SCH ×3 (05:40→20:48)
[2022-04-26] MEDS: Insulin LISPRO 300 UNITS/3 ML VIAL SUBQ SCH ×5 (06:32→20:53)
[2022-04-26] MEDS: NIFEdipine XL (24 HR) 30 MG TAB.ER.24 PO SCH (09:16)
[2022-04-26] MEDS: carvediloL 6.25 MG TABLET PO SCH ×2 (09:17→20:48)
[2022-04-26] MEDS: Aspirin 81 MG TAB.CHEW PO SCH (09:17)
[2022-04-26] MEDS: Cyanocobalamin (B-12) 1,000 MCG/ML VIAL SQ SCH (09:17)
[2022-04-26] MEDS: Isosorbide MONOnitrate (24 HR) 60 MG TAB.ER.24H PO SCH (09:22)
[2022-04-26] MEDS: Insulin DETEMIR 100 UNIT/ML X5UNITS SUBQ SCH ×2 (09:38→20:53)
[2022-04-26 13:40] LABS: Basophils % 0.5 %; Eosinophils # 0.9 K/mcL (0.0-0.6); Eosinophils % 11.2 %; Hematocrit 32.5 % (35.3-44.9); Immature Granulocytes % 0.6 % (0-4); Lymphocytes # 2.5 K/mcL (0.6-4.6); Lymphocytes % 30.9 %; Mean Corpuscular HGB Conc 30.8 g/dL (31.6-35.5); Mean Corpuscular Hemoglobin 27.4 pg (28.0-33.3); Mean Platelet Volume 11.3 fL (9.4-12.4); Monocytes # 0.5 K/mcL (0.0-1.3); Monocytes % 6.5 %; Platelet Count 227 K/mcL (140-400); Red Blood Count 3.65 M/mcL (3.82-4.97); Red Cell Distribution Width 15.4 % (11.5-14.5); Segmented Neutrophils % 50.3 %
[2022-04-26 13:44] LABS: Calcium 8.3 mg/dL (8.6-10.3); Potassium 4.2 mEq/L (3.5-5.1)
[2022-04-27] MEDS: *HR* Heparin 5,000 UNIT/ML VIAL SQ SCH (06:44)
[2022-04-27 07:30] VITALS: O2SAT 92
[2022-04-27] MEDS: Aspirin 81 MG TAB.CHEW PO SCH (07:51)
[2022-04-27] MEDS: Isosorbide MONOnitrate (24 HR) 60 MG TAB.ER.24H PO SCH (07:51)
[2022-04-27] MEDS: carvediloL 6.25 MG TABLET PO SCH (07:51)
[2022-04-27] MEDS: NIFEdipine XL (24 HR) 30 MG TAB.ER.24 PO SCH (07:51)
[2022-04-27] MEDS: Cyanocobalamin (B-12) 1,000 MCG/ML VIAL SQ SCH (07:52)
[2022-04-27] MEDS: Insulin LISPRO 300 UNITS/3 ML VIAL SUBQ SCH ×2 (07:52→09:00)
[2022-04-27] MEDS: Insulin DETEMIR 100 UNIT/ML X5UNITS SUBQ SCH (09:54)
[2022-04-27 11:25] VITALS: BP 106/70; PULSE 65; TEMP 97.9
== END 2022-04-27 12:39 | disposition home or self-care (01) | DRG 281 ==
LOC: SUATTDRO 04-23 01:57 → 2NNU 04-23 01:57 → 3ANU 04-25 15:14
PROVIDERS: ADMIT Internal Medicine; ATTEND Internal Medicine